=== PATIENT | female | born 1985 | race Two or more races ===

== ENCOUNTER 2019-04-17 17:19 | Emergency (ER) | payer MEDICAID ==
[~2019-04-17] VITALS: Ht 154.9 cm; Wt 65.8 kg
[~2019-04-17 17:19] MED LIST: AMOX-263 PO; CHOL200010 PO; FERR324T11 PO; LEVE500T22 PO; [UNRECOGNIZED DRUG - CODE] IM
[2019-04-17 17:37] VITALS: BP 122/76
== END 2019-04-17 19:01 | disposition home or self-care (01) ==
LOC: ER 17:19
DX: S60.222A Contusion of left hand, initial encounter (principal); Z77.22 Contact with and (suspected) exposure to environmental tobacco smoke (acute) (chronic); Z87.442 Personal history of urinary calculi; Z90.49 Acquired absence of other specified parts of digestive tract; Z79.899 Other long term (current) drug therapy; W20.8XXA Other cause of strike by thrown, projected or falling object, initial encounter; Y93.89 Activity, other specified; Y92.89 Other specified places as the place of occurrence of the external cause; Y99.8 Other external cause status
CPT/HCPCS: 73130

== ENCOUNTER 2020-07-18 21:31 | Emergency (ER) | payer MEDICAID ==
[~2020-07-18] VITALS: Ht 154.9 cm; Wt 62.1 kg
[~2020-07-18 21:31] MED LIST changes: -LEVE500T22 PO; +LEVE500T32 PO
[2020-07-18 22:13] LABS: Urine Bacteria FEW /hpf (None Seen); Urine Blood Negative /uL (Negative); Urine Mucus FEW (None Seen); Urine Specific Gravity 1.012 (1.001-1.035); Urine WBC 1 /hpf (0 - 5)
[2020-07-18 22:20] LABS: Basophils # (auto) 0 10 ^3/uL (0-0.2); Eosinophils # (auto) 0.1 10 ^3/uL (0-0.8); Hemoglobin 8.7 g/dL (12.2-16.2); Lymphocytes # (auto) 2.1 10 ^3/uL (0.4-5.4); Monocytes # (auto) 0.5 10 ^3/uL (0-1.3); White Blood Cell 4.6 10^3/uL (4.4-10.8)
[2020-07-18 22:22] LABS: Basophils % (auto) 0.5 % (0.0-2.0); Eosinophils % (auto) 2.7 % (0.0-7.0); Hematocrit 28.9 % (36.0-46.0); Lymphocytes % (auto) 44.7 % (10.0-50.0); Mean Corpuscular Hemoglobin 19.3 pg (28.0-32.0); Mean Corpuscular Hgb Conc. 30.1 g/dL (32.0-36.0); Monocytes % (auto) 9.9 % (0.0-12.0); Neutrophils % (auto) 42.2 % (37.0-80.0); Nucleated Red Blood Cells % 0.1 %; Platelet Count (auto) 376 10^3/uL (140-450); Red Blood Cells 4.51 10^6/uL (4.0-5.20)
[2020-07-18 22:28] LABS: Red Cell Distribution Width 20.6 % (11.8-14.3)
[2020-07-18 22:39] LABS: Chloride 109 mmol/L (98-107); Potassium 3.8 mmol/L (3.5-5.1); Sodium 137 mmol/L (136-145)
[2020-07-18 22:45] LABS: Alanine Aminotransferase 21 U/L (13-56); Albumin 3.6 g/dL (3.4-5.0); Alkaline Phosphatase 60 U/L (45-117); Aspartate Aminotransferase 16 U/L (15-37); BUN/Creatinine Ratio 20.5; Bilirubin, Total 0.3 mg/dL (0.2-1.0); Blood Urea Nitrogen 15 mg/dL (7-18); Calcium 8.7 mg/dL (8.5-10.1); Carbon Dioxide 22 mmol/L (21-32); GFR African American 117 mL/min; GFR Non-African American 97 mL/min; Glucose 65 mg/dL (74-106); Total Protein 7.7 g/dL (6.4-8.2)
[2020-07-18 22:46] LABS: Anion Gap 6 (5-15)
[2020-07-19] MEDS: SODIUM CHLORIDE 0.9% 1,000 ML IV ONE (03:09)
[2020-07-19 04:12] LABS: Hematocrit 25.7 % (36.0-46.0); Hemoglobin 7.6 g/dL (12.2-16.2)
[2020-07-19 06:41] VITALS: BP 121/52
[2020-07-19 07:00] VITALS: BP 108/43
[2020-07-19] MEDS: ACETAMINOPHEN 325 MG TAB PO ONE (14:15)
[2020-07-19 15:00] LABS: Basophils # (auto) 0 10 ^3/uL (0-0.2); Eosinophils # (auto) 0.1 10 ^3/uL (0-0.8); Lymphocytes # (auto) 1.9 10 ^3/uL (0.4-5.4); White Blood Cell 4.5 10^3/uL (4.4-10.8)
[2020-07-19 15:01] LABS: Basophils % (auto) 0.3 % (0.0-2.0); Eosinophils % (auto) 1.7 % (0.0-7.0); Hematocrit 31.9 % (36.0-46.0); Hemoglobin 9.5 g/dL (12.2-16.2); Lymphocytes % (auto) 41.9 % (10.0-50.0); Mean Corpuscular Hemoglobin 19.8 pg (28.0-32.0); Mean Corpuscular Hgb Conc. 29.8 g/dL (32.0-36.0); Mean Corpuscular Volume 66.4 fL (80.0-100.0); Monocytes # (auto) 0.6 10 ^3/uL (0-1.3); Monocytes % (auto) 12.1 % (0.0-12.0); Platelet Count (auto) 313 10^3/uL (140-450)
[2020-07-19 15:07] LABS: Red Cell Distribution Width 21.9 % (11.8-14.3)
[2020-07-19 17:01] VITALS: BP 104/67
== END 2020-07-19 17:08 | disposition home or self-care (01) ==
LOC: ER 21:33
DX: D64.9 Anemia, unspecified (principal); Z79.899 Other long term (current) drug therapy
CPT/HCPCS: 36415; 36430; 80053; 81001; 81025; 84484; 85014; 85018; 85025; 86850; 86900; 86901; 86920; 96360; 99285; J7030; P9016; 93005

== ENCOUNTER 2020-08-10 21:13 | Emergency (ER) | payer MEDICAID ==
[~2020-08-10] VITALS: Ht 154.9 cm; Wt 59.9 kg
[2020-08-10 21:51] VITALS: BP 124/60
== END 2020-08-11 01:15 | disposition left against medical advice (07) ==
LOC: ER 21:16
DX: R07.9 Chest pain, unspecified (principal); Z53.21 Procedure and treatment not carried out due to patient leaving prior to being seen by health care provider
CPT/HCPCS: 93005

== ENCOUNTER 2021-04-14 18:06 | Emergency (ER) | payer MEDICAID ==
[~2021-04-14] VITALS: Ht 154.9 cm; Wt 61.2 kg
[2021-04-14 22:27] VITALS: BP 98/56
[2021-04-14] MEDS ORDERED: ACETAMINOPHEN/CODEINE#3 (300/30mg) TAB PO ONE (23:00)
[2021-04-14] MEDS ORDERED: ONDANSETRON ODT 4 MG TAB PO ONE (23:00)
== END 2021-04-14 23:31 | disposition home or self-care (01) ==
LOC: ER 18:06
DX: S93.492A Sprain of other ligament of left ankle, initial encounter (principal); Z88.6 Allergy status to analgesic agent; Z88.8 Allergy status to other drugs, medicaments and biological substances; Z79.899 Other long term (current) drug therapy; Z87.442 Personal history of urinary calculi; Z90.49 Acquired absence of other specified parts of digestive tract; Z98.890 Other specified postprocedural states; W18.39XA Other fall on same level, initial encounter; Y93.89 Activity, other specified; Y92.89 Other specified places as the place of occurrence of the external cause; Y99.8 Other external cause status
CPT/HCPCS: 73610; 99283; Q0162

== ENCOUNTER 2021-04-15 11:36 | Inpatient (IN) | payer MEDICAID ==
[~2021-04-15] VITALS: Ht 154.9 cm; Wt 60.2 kg
[2021-04-15 12:43] LABS: Basophils # (auto) 0 10 ^3/uL (0-0.2); Eosinophils # (auto) 0.1 10 ^3/uL (0-0.8); Lymphocytes # (auto) 1.2 10 ^3/uL (0.4-5.4); Lymphocytes % (auto) 14.5 % (10.0-50.0); Neutrophils % (auto) 76.2 % (37.0-80.0)
[2021-04-15 12:45] LABS: Basophils % (auto) 0.5 % (0.0-2.0); Eosinophils % (auto) 1.3 % (0.0-7.0); Hematocrit 25.8 % (36.0-46.0); Hemoglobin 7.5 g/dL (12.2-16.2); Mean Corpuscular Hemoglobin 18.1 pg (28.0-32.0); Mean Corpuscular Hgb Conc. 29.1 g/dL (32.0-36.0); Mean Corpuscular Volume 62.2 fL (80.0-100.0); Monocytes # (auto) 0.6 10 ^3/uL (0-1.3); Monocytes % (auto) 7.5 % (0.0-12.0); Neutrophils # (auto) 6.4 10 ^3/uL (1.6-8.6); Red Blood Cells 4.16 10^6/uL (4.0-5.20); White Blood Cell 8.4 10^3/uL (4.4-10.8)
[2021-04-15 12:53] LABS: BUN/Creatinine Ratio 35.7; Calcium 8.2 mg/dL (8.5-10.1)
[2021-04-15 13:01] LABS: Red Cell Distribution Width 20.3 % (11.8-14.3)
[2021-04-15 15:12] LABS: Urine Bacteria NONE SEEN /hpf (None Seen); Urine Blood Negative /uL (Negative); Urine Mucus FEW (None Seen); Urine Specific Gravity 1.032 (1.001-1.035); Urine WBC <1 /hpf (0 - 5)
[2021-04-15 15:46] LABS: INR 0.92 (0.9-1.15)
[2021-04-15] MEDS ORDERED: ONDANSETRON HCL 4 MG/2 ML VIAL IV ONE (17:45)
[2021-04-15] MEDS ORDERED: NITROGLYCERIN 0.4 MG SL TAB SL PRN (18:30)
[2021-04-15] MEDS ORDERED: CYANOCOBALAMIN 500 MCG TAB PO ONE (18:30)
[2021-04-15] MEDS ORDERED: MORPHINE SULF INJ 2 MG/ML SYRINGE 1ML IV PRN (18:30)
[2021-04-15] MEDS ORDERED: ACETAMINOPHEN 500 MG TAB PO PRN (18:30)
[2021-04-15] MEDS ORDERED: ONDANSETRON HCL 4 MG/2 ML VIAL IV PRN (18:30)
[2021-04-15] MEDS: HYDROcodone-ACET 5/325MG TAB PO PRN (19:22)
[2021-04-15 20:14] VITALS: BP 138/72
[2021-04-15 20:22] VITALS: BP 138/72
[2021-04-15 20:50] VITALS: BP 107/77
[2021-04-15 21:42] LABS: % Iron Saturation 2.6 % (15-50)
[2021-04-15 22:00] VITALS: BP 107/77
[2021-04-16 00:19] VITALS: BP 111/56
[2021-04-16] MEDS: HYDROcodone-ACET 5/325MG TAB PO PRN (01:15)
[2021-04-16 01:19] VITALS: BP 121/76
[2021-04-16 05:00] VITALS: BP 111/66
[2021-04-16 09:00] VITALS: BP 143/68
[2021-04-16] MEDS ORDERED: FOLIC ACID 1 MG TAB PO SCH (10:00)
[2021-04-16 13:00] VITALS: BP 106/47
[2021-04-16 13:27] LABS: Hematocrit 30.7 % (36.0-46.0)
== END 2021-04-16 16:22 | disposition home or self-care (01) | DRG 663 ==
LOC: ER 11:36 → OVERFLOW 18:32 → WEST WING 20:08
PROVIDERS: ADMIT Nurse Practitioner Acute Care; ATTEND Nurse Practitioner Acute Care
PROC: 30233N1 Transfusion of Nonautologous Red Blood Cells into Peripheral Vein, Percutaneous Approach (ICD-10-PCS; principal; 2021-04-15)
DX: D64.9 Anemia, unspecified (principal); E16.2 Hypoglycemia, unspecified; J45.909 Unspecified asthma, uncomplicated; G43.909 Migraine, unspecified, not intractable, without status migrainosus; R53.83 Other fatigue; R55 Syncope and collapse; Z20.822 Contact with and (suspected) exposure to COVID-19; R42 Dizziness and giddiness; Z79.899 Other long term (current) drug therapy; Z82.49 Family history of ischemic heart disease and other diseases of the circulatory system; Z83.3 Family history of diabetes mellitus; Z87.442 Personal history of urinary calculi; Z98.84 Bariatric surgery status; Z90.49 Acquired absence of other specified parts of digestive tract
CPT/HCPCS: 36415; 80048; 81001; 81025; 83540; 83550; 83690; 85014; 85018; 85025; 85045; 85610; 86850; 86900; 86901; 86920; 87426; 93005; 96374; G0378; J2405

== ENCOUNTER 2021-07-23 13:09 | Emergency (ER) | payer MEDICAID ==
[~2021-07-23] VITALS: Ht 154.9 cm; Wt 64.9 kg
[2021-07-23 14:07] LABS: Eosinophils # (auto) 0.1 10 ^3/uL (0-0.8); Hemoglobin 7.9 g/dL (12.2-16.2)
[2021-07-23 14:09] LABS: Basophils # (auto) 0 10 ^3/uL (0-0.2); Basophils % (auto) 0.8 % (0.0-2.0); Eosinophils % (auto) 1.3 % (0.0-7.0); Hematocrit 26.3 % (36.0-46.0); Lymphocytes # (auto) 1.6 10 ^3/uL (0.4-5.4); Lymphocytes % (auto) 27.2 % (10.0-50.0); Mean Corpuscular Hemoglobin 19.2 pg (28.0-32.0); Mean Corpuscular Volume 63.9 fL (80.0-100.0); Monocytes # (auto) 0.4 10 ^3/uL (0-1.3); Monocytes % (auto) 7.6 % (0.0-12.0); Neutrophils # (auto) 3.6 10 ^3/uL (1.6-8.6); Neutrophils % (auto) 63.1 % (37.0-80.0); Nucleated Red Blood Cells % 0.1 %; Red Blood Cells 4.11 10^6/uL (4.0-5.20); White Blood Cell 5.8 10^3/uL (4.4-10.8)
[2021-07-23 14:17] LABS: Red Cell Distribution Width 20.1 % (11.8-14.3)
[2021-07-23 14:25] LABS: Albumin 3.4 g/dL (3.4-5.0); Calcium 8.4 mg/dL (8.5-10.1); Potassium 4.5 mmol/L (3.5-5.1)
[2021-07-23 14:28] LABS: BUN/Creatinine Ratio 31.1
[2021-07-23 14:30] LABS: Bilirubin, Total 0.2 mg/dL (0.2-1.0); Total Protein 7.1 g/dL (6.4-8.2)
[2021-07-23 14:36] LABS: Urine Bacteria NONE SEEN /hpf (None Seen); Urine Blood 2+ /uL (Negative); Urine WBC 1 /hpf (0 - 5)
[2021-07-23 19:00] VITALS: BP 96/55
== END 2021-07-23 19:58 | disposition home or self-care (01) ==
LOC: ER 13:09
DX: R53.1 Weakness (principal); J45.909 Unspecified asthma, uncomplicated; Z86.2 Personal history of diseases of the blood and blood-forming organs and certain disorders involving the immune mechanism; Z90.49 Acquired absence of other specified parts of digestive tract; Z88.8 Allergy status to other drugs, medicaments and biological substances
CPT/HCPCS: 36415; 80053; 81001; 85025; 86850; 86900; 86901; 86920

== ENCOUNTER 2021-11-02 11:59 | Emergency (ER) | payer MEDICAID ==
[~2021-11-02] VITALS: Ht 154.9 cm; Wt 62.6 kg
[2021-11-02 12:00] VITALS: BP 120/56
== END 2021-11-02 13:00 | disposition home or self-care (01) ==
LOC: ER 11:59
DX: S60.221A Contusion of right hand, initial encounter (principal); F12.10 Cannabis abuse, uncomplicated; J45.909 Unspecified asthma, uncomplicated; I10 Essential (primary) hypertension; Z90.49 Acquired absence of other specified parts of digestive tract; Z87.442 Personal history of urinary calculi; Z88.8 Allergy status to other drugs, medicaments and biological substances; W22.8XXA Striking against or struck by other objects, initial encounter; Y93.89 Activity, other specified; Y92.89 Other specified places as the place of occurrence of the external cause; Y99.8 Other external cause status
CPT/HCPCS: 73130

== ENCOUNTER 2022-01-23 12:47 | Emergency (ER) | payer MEDICAID ==
[~2022-01-23] VITALS: Ht 154.9 cm; Wt 62.6 kg
[2022-01-23 13:56] LABS: Basophils # (auto) 0 10 ^3/uL (0-0.2); Eosinophils # (auto) 0.1 10 ^3/uL (0-0.8); Lymphocytes # (auto) 1.8 10 ^3/uL (0.4-5.4); Monocytes # (auto) 0.4 10 ^3/uL (0-1.3); Nucleated Red Blood Cells % 0.1 %; White Blood Cell 5.2 10^3/uL (4.4-10.8)
[2022-01-23 13:58] LABS: Basophils % (auto) 0.7 % (0.0-2.0); Eosinophils % (auto) 1.2 % (0.0-7.0); Hematocrit 24.9 % (36.0-46.0); Hemoglobin 7.3 g/dL (12.2-16.2); Lymphocytes % (auto) 35.2 % (10.0-50.0); Mean Corpuscular Hemoglobin 17.1 pg (28.0-32.0); Mean Corpuscular Hgb Conc. 29.3 g/dL (32.0-36.0); Mean Corpuscular Volume 58.6 fL (80.0-100.0); Monocytes % (auto) 8.4 % (0.0-12.0); Neutrophils # (auto) 2.9 10 ^3/uL (1.6-8.6); Neutrophils % (auto) 54.5 % (37.0-80.0); Red Blood Cells 4.25 10^6/uL (4.0-5.20)
[2022-01-23 14:19] LABS: Albumin 3.5 g/dL (3.4-5.0); Calcium 8.9 mg/dL (8.5-10.1); Potassium 3.8 mmol/L (3.5-5.1)
[2022-01-23 14:20] LABS: Red Cell Distribution Width 21.1 % (11.8-14.3)
[2022-01-23 14:22] LABS: BUN/Creatinine Ratio 24.6; Bilirubin, Total 0.4 mg/dL (0.2-1.0); Total Protein 7.4 g/dL (6.4-8.2)
[2022-01-23 14:42] LABS: Urine WBC None Seen /hpf (0 - 5)
[2022-01-23 14:55] LABS: Urine Bacteria NONE SEEN /hpf (None Seen); Urine Blood Negative /uL (Negative); Urine Specific Gravity 1.005 (1.001-1.035)
[2022-01-23 16:00] VITALS: BP 139/75
== END 2022-01-23 16:10 | disposition home or self-care (01) ==
LOC: ER 12:47
DX: D64.9 Anemia, unspecified (principal); R55 Syncope and collapse; I10 Essential (primary) hypertension; J45.909 Unspecified asthma, uncomplicated; Z90.49 Acquired absence of other specified parts of digestive tract; Z88.8 Allergy status to other drugs, medicaments and biological substances
CPT/HCPCS: 36415; 70450; 80053; 81001; 85025; 93005

== ENCOUNTER 2022-02-05 09:30 | Inpatient (IN) | payer MEDICAID ==
[~2022-02-05] VITALS: Ht 152.4 cm; Wt 60.6 kg
[2022-02-05] MEDS ORDERED: ONDANSETRON ODT 4 MG TAB PO ONE ×2 (10:41→10:45)
[2022-02-05] MEDS ORDERED: SODIUM CHLORIDE 0.9% 1,000 ML IV ONE ×3 (11:00→11:45)
[2022-02-05] MEDS ORDERED: MORPHINE SULFATE 4 MG/ML SYR/VIAL IV ONE (11:45)
[2022-02-05] MEDS ORDERED: ONDANSETRON HCL 4 MG/2 ML VIAL IV ONE (11:45)
[2022-02-05 12:00] LABS: Hematocrit 25.9 % (36.0-46.0); Hemoglobin 7.4 g/dL (12.2-16.2); Mean Corpuscular Hemoglobin 16.9 pg (28.0-32.0); Mean Corpuscular Hgb Conc. 28.4 g/dL (32.0-36.0); Mean Corpuscular Volume 59.3 fL (80.0-100.0); Red Blood Cells 4.36 10^6/uL (4.0-5.20); White Blood Cell 6.5 10^3/uL (4.4-10.8)
[2022-02-05 12:01] LABS: Basophils % (manual) 0 (0.0-2.0); Blast Cells 0; Metamyelocytes % 0; Myelocytes % 0; Promyelocytes % 0; Reactive Lymphocytes 0; Red Cell Distribution Width 20.4 % (11.8-14.3)
[2022-02-05 12:16] LABS: Albumin 3.4 g/dL (3.4-5.0); Calcium 8.2 mg/dL (8.5-10.1); Potassium 4.2 mmol/L (3.5-5.1)
[2022-02-05 12:20] LABS: BUN/Creatinine Ratio 28.8; Bilirubin, Total 0.4 mg/dL (0.2-1.0); Total Protein 7.6 g/dL (6.4-8.2)
[2022-02-05 12:24] LABS: Band Neutrophils % (manual) 3; Eosinophils % (manual) 3 (0-7); Lymphocytes % (manual) 23 (10.0-50.0); Monocytes % (manual) 5 (0-12)
[2022-02-05 13:49] LABS: Urine Bacteria NONE SEEN /hpf (None Seen); Urine Blood Negative /uL (Negative); Urine Specific Gravity 1.012 (1.001-1.035); Urine WBC <1 /hpf (0 - 5)
[2022-02-05] MEDS ORDERED: cefTRIAXone 1GM/50ML D5W 50 ML IV ONE (16:30)
[2022-02-05] MEDS ORDERED: metroNIDAZOLE 500MG/100ML 100 ML IV ONE (16:30)
[2022-02-05] MEDS ORDERED: PANTOPRAZOLE 40 MG/10 ML VIAL INJ IV ONE (18:30)
[2022-02-05] MEDS: ONDANSETRON HCL 4 MG/2 ML VIAL IV PRN (20:16)
[2022-02-05] MEDS: SODIUM CHLORIDE 0.9% 1,000 ML IV SCH (20:16)
[2022-02-05] MEDS: MORPHINE SULFATE INJ 2 MG/ml SYRG IV PRN (20:17)
[2022-02-06] VITALS (11 sets, daily range): BP systolic 91–120; BP diastolic 41–62
[2022-02-06] MEDS ORDERED: ALBUMIN 5% 250 ML IV ONE (06:00)
[2022-02-06 06:37] LABS: Eosinophils # (auto) 0.2 10 ^3/uL (0-0.8); Eosinophils % (auto) 3.5 % (0.0-7.0); Mean Corpuscular Volume 59.9 fL (80.0-100.0); Monocytes # (auto) 0.4 10 ^3/uL (0-1.3); Monocytes % (auto) 6.9 % (0.0-12.0); Nucleated Red Blood Cells % 0.1 %; White Blood Cell 5.5 10^3/uL (4.4-10.8)
[2022-02-06 06:40] LABS: Basophils # (auto) 0 10 ^3/uL (0-0.2); Basophils % (auto) 0.5 % (0.0-2.0); Hematocrit 22.6 % (36.0-46.0); Lymphocytes # (auto) 1.4 10 ^3/uL (0.4-5.4); Lymphocytes % (auto) 25.8 % (10.0-50.0); Mean Corpuscular Hemoglobin 17.6 pg (28.0-32.0); Mean Corpuscular Hgb Conc. 29.4 g/dL (32.0-36.0); Neutrophils # (auto) 3.5 10 ^3/uL (1.6-8.6); Neutrophils % (auto) 63.3 % (37.0-80.0); Red Blood Cells 3.77 10^6/uL (4.0-5.20)
[2022-02-06 06:51] LABS: Albumin 2.6 g/dL (3.4-5.0); Calcium 7.8 mg/dL (8.5-10.1); Potassium 3.9 mmol/L (3.5-5.1)
[2022-02-06 06:58] LABS: Red Cell Distribution Width 20.7 % (11.8-14.3)
[2022-02-06 06:59] LABS: Hemoglobin 6.7 g/dL (12.2-16.2)
[2022-02-06 07:04] LABS: Bilirubin, Total 0.4 mg/dL (0.2-1.0); Total Protein 5.9 g/dL (6.4-8.2)
[2022-02-06] MEDS: MORPHINE SULFATE INJ 2 MG/ml SYRG IV PRN (08:29)
[2022-02-06] MEDS: SODIUM CHLORIDE 0.9% 1,000 ML IV SCH ×2 (08:30→14:15)
[2022-02-06] MEDS: ONDANSETRON HCL 4 MG/2 ML VIAL IV PRN ×2 (08:30→19:29)
[2022-02-06] MEDS ORDERED: PANTOPRAZOLE 40 MG/10 ML VIAL INJ IV SCH ×2 (10:00→22:00)
[2022-02-06] MEDS ORDERED: HYDROcodone-ACET 5/325MG TAB PO PRN (11:45)
[2022-02-06 13:00] LABS: INR 0.99 (0.9-1.15); Partial Thromboplastin Time 25.4 sec (23.6-33.0)
[2022-02-06 13:18] LABS: % Iron Saturation 2.2 % (15-50)
[2022-02-06] MEDS: SUCRALFATE 1 GM/10 ML ORAL SUSP PO SCH ×2 (17:00→20:24)
[2022-02-07 01:07] VITALS: BP 94/57
[2022-02-07 02:28] VITALS: BP 105/60
[2022-02-07 05:00] VITALS: BP 110/73
[2022-02-07] MEDS: SUCRALFATE 1 GM/10 ML ORAL SUSP PO SCH ×2 (07:00→11:30)
[2022-02-07 07:04] LABS: Basophils # (auto) 0.1 10 ^3/uL (0-0.2); Eosinophils # (auto) 0.2 10 ^3/uL (0-0.8); Hemoglobin 9.2 g/dL (12.2-16.2); Lymphocytes % (auto) 29.3 % (10.0-50.0); Monocytes # (auto) 0.5 10 ^3/uL (0-1.3); Neutrophils # (auto) 3.3 10 ^3/uL (1.6-8.6); Red Cell Distribution Width 25.9 % (11.8-14.3)
[2022-02-07 07:05] LABS: Hematocrit 29.5 % (36.0-46.0); Lymphocytes # (auto) 1.7 10 ^3/uL (0.4-5.4); Mean Corpuscular Hemoglobin 20.3 pg (28.0-32.0); Mean Corpuscular Hgb Conc. 31.3 g/dL (32.0-36.0); Monocytes % (auto) 8.2 % (0.0-12.0); Neutrophils % (auto) 58.5 % (37.0-80.0); Nucleated Red Blood Cells % 0.2 %; Red Blood Cells 4.55 10^6/uL (4.0-5.20); White Blood Cell 5.7 10^3/uL (4.4-10.8)
[2022-02-07] MEDS ORDERED: MIDAZOLAM HCL 5 MG/ML-1ML VIAL ONE (08:36)
[2022-02-07] MEDS ORDERED: SODIUM CHLORIDE LOCK 10 ML ONE (08:36)
[2022-02-07] MEDS ORDERED: LIDOCAINE VISCOUS 2% 15ML UD ONE (08:36)
[2022-02-07] MEDS ORDERED: fentaNYL CITRATE 100 MCG/2 ML VL ONE (08:37)
[2022-02-07] MEDS ORDERED: diphenhdrAMINE HCL 50 MG/1 ML VL ONE (08:37)
[2022-02-07 09:00] VITALS: BP 110/58
[2022-02-07] MEDS ORDERED: PANTOPRAZOLE 40 MG TAB PO SCH (10:00)
[2022-02-07] MEDS ORDERED: SUCR1SUS5 PO (11:15)
[2022-02-07] MEDS ORDERED: PANT40T PO (11:15)
[2022-02-07] MEDS ORDERED: FERR-7 PO (11:22)
[2022-02-07 13:00] VITALS: BP 107/53
== END 2022-02-07 16:00 | disposition home or self-care (01) | DRG 241 ==
LOC: ER 09:30 → OVERFLOW 18:39 → EAST 22:20
PROVIDERS: ADMIT Registered Nurse; ATTEND Internal Medicine
PROC: 30233N1 Transfusion of Nonautologous Red Blood Cells into Peripheral Vein, Percutaneous Approach (ICD-10-PCS; principal; 2022-02-06)
PROC: 0DJ08ZZ Inspection of Upper Intestinal Tract, Via Natural or Artificial Opening Endoscopic (ICD-10-PCS; 2022-02-07)
DX: K29.70 Gastritis, unspecified, without bleeding (principal); E61.1 Iron deficiency; G40.909 Epilepsy, unspecified, not intractable, without status epilepticus; K52.9 Noninfective gastroenteritis and colitis, unspecified; I10 Essential (primary) hypertension; J45.909 Unspecified asthma, uncomplicated; N85.2 Hypertrophy of uterus; Z20.822 Contact with and (suspected) exposure to COVID-19; Z82.49 Family history of ischemic heart disease and other diseases of the circulatory system; Z83.3 Family history of diabetes mellitus; Z87.11 Personal history of peptic ulcer disease; Z98.84 Bariatric surgery status; Z88.8 Allergy status to other drugs, medicaments and biological substances; Z90.49 Acquired absence of other specified parts of digestive tract
CPT/HCPCS: 36415; 43235; 74176; 76830; 76856; 80053; 81001; 82728; 83540; 83550; 84702; 85007; 85025; 85027; 85610; 85730; 86850; 86900; 86901; 86920; 96361; 96365; 96367; 96375; 96376; C9113; G0378; J0696; J2250; J2405; J3490; Q0162

== ENCOUNTER 2022-02-25 12:34 | Emergency (ER) | payer MEDICAID ==
[~2022-02-25] VITALS: Ht 154.9 cm; Wt 62.6 kg
[~2022-02-25 12:34] MED LIST changes: -AMOX-263 PO; -CHOL200010 PO; +FERR-7 PO; -FERR324T11 PO; -LEVE500T32 PO; +PANT40T PO; +SUCR1SUS5 PO; -[UNRECOGNIZED DRUG - CODE] IM
[2022-02-25 12:35] VITALS: BP 146/80
[2022-02-25 13:18] LABS: Urine WBC None Seen /hpf (0 - 5)
[2022-02-25 13:23] LABS: Basophils # (auto) 0 10 ^3/uL (0-0.2); Eosinophils # (auto) 0.1 10 ^3/uL (0-0.8); Hemoglobin 10.8 g/dL (12.2-16.2); Lymphocytes # (auto) 2.1 10 ^3/uL (0.4-5.4); Mean Corpuscular Hgb Conc. 31.2 g/dL (32.0-36.0); Monocytes # (auto) 0.3 10 ^3/uL (0-1.3)
[2022-02-25 13:25] LABS: Eosinophils % (auto) 3.1 % (0.0-7.0); Hematocrit 34.5 % (36.0-46.0); Lymphocytes % (auto) 48.5 % (10.0-50.0); Mean Corpuscular Hemoglobin 20.8 pg (28.0-32.0); Mean Corpuscular Volume 66.8 fL (80.0-100.0); Monocytes % (auto) 6.4 % (0.0-12.0); Neutrophils # (auto) 1.8 10 ^3/uL (1.6-8.6); Red Blood Cells 5.16 10^6/uL (4.0-5.20); White Blood Cell 4.3 10^3/uL (4.4-10.8)
[2022-02-25 13:29] LABS: Urine Bacteria NONE SEEN /hpf (None Seen); Urine Blood Negative /uL (Negative); Urine Specific Gravity 1.007 (1.001-1.035)
[2022-02-25 13:30] LABS: Red Cell Distribution Width 30.5 % (11.8-14.3)
[2022-02-25 13:52] LABS: Albumin 3.6 g/dL (3.4-5.0); Calcium 8.8 mg/dL (8.5-10.1); Potassium 3.8 mmol/L (3.5-5.1)
[2022-02-25 13:56] LABS: BUN/Creatinine Ratio 19.7; Bilirubin, Total 0.5 mg/dL (0.2-1.0); Total Protein 7.7 g/dL (6.4-8.2)
[2022-02-25] MEDS ORDERED: SODIUM CHLORIDE 0.9% 1,000 ML IV ONE (14:45)
== END 2022-02-25 17:34 | disposition home or self-care (01) ==
LOC: ER 12:34
DX: R07.89 Other chest pain (principal); D64.9 Anemia, unspecified; I10 Essential (primary) hypertension; K21.9 Gastro-esophageal reflux disease without esophagitis; J45.909 Unspecified asthma, uncomplicated; Z86.69 Personal history of other diseases of the nervous system and sense organs; Z98.84 Bariatric surgery status; Z90.49 Acquired absence of other specified parts of digestive tract; Z79.899 Other long term (current) drug therapy; Z88.8 Allergy status to other drugs, medicaments and biological substances
CPT/HCPCS: 36415; 71046; 80053; 81001; 81025; 83735; 84443; 84484; 85025; 93005; 96360; 99285; J7030

== ENCOUNTER 2022-09-10 15:34 | Emergency (ER) | payer MEDICAID ==
[~2022-09-10] VITALS: Ht 154.9 cm; Wt 72.0 kg
[2022-09-10] MEDS ORDERED: ASPirin 81 mg TAB PO ONE (16:00)
[2022-09-10 16:37] LABS: Hemoglobin 10.3 g/dL (12.2-16.2)
[2022-09-10 16:40] LABS: Basophils # (auto) 0.1 10 ^3/uL (0-0.2); Eosinophils # (auto) 0.2 10 ^3/uL (0-0.8); Eosinophils % (auto) 3.5 % (0.0-7.0); Hematocrit 34.9 % (36.0-46.0); Lymphocytes # (auto) 2.1 10 ^3/uL (0.4-5.4); Lymphocytes % (auto) 40.5 % (10.0-50.0); Mean Corpuscular Hemoglobin 20.1 pg (28.0-32.0); Mean Corpuscular Hgb Conc. 29.5 g/dL (32.0-36.0); Mean Corpuscular Volume 68.3 fL (80.0-100.0); Monocytes # (auto) 0.3 10 ^3/uL (0-1.3); Neutrophils # (auto) 2.5 10 ^3/uL (1.6-8.6); Nucleated Red Blood Cells % 0.1 %; Red Blood Cells 5.11 10^6/uL (4.0-5.20); Red Cell Distribution Width 19.5 % (11.8-14.3); White Blood Cell 5.2 10^3/uL (4.4-10.8)
[2022-09-10 16:58] LABS: Calcium 8.8 mg/dL (8.5-10.1); Magnesium 2.5 mg/dL (1.6-2.6); Potassium 4.2 mmol/L (3.5-5.1)
[2022-09-10 17:02] LABS: Bilirubin, Total 0.4 mg/dL (0.2-1.0); Total Protein 7.6 g/dL (6.4-8.2)
[2022-09-10 17:05] LABS: BUN/Creatinine Ratio 26.1
[2022-09-10 19:32] LABS: Urine Bacteria NONE SEEN /hpf (None Seen); Urine Blood Negative /uL (Negative); Urine WBC <1 /hpf (0 - 5)
[2022-09-10 20:04] VITALS: BP 135/70
== END 2022-09-10 20:08 | disposition home or self-care (01) ==
LOC: ER 15:34
DX: R07.89 Other chest pain (principal); J45.909 Unspecified asthma, uncomplicated; K21.9 Gastro-esophageal reflux disease without esophagitis; E78.5 Hyperlipidemia, unspecified; I10 Essential (primary) hypertension; Z98.51 Tubal ligation status; Z90.49 Acquired absence of other specified parts of digestive tract; Z87.442 Personal history of urinary calculi; Z88.6 Allergy status to analgesic agent
CPT/HCPCS: 36415; 71046; 80053; 81001; 83735; 84484; 85025; 85379; 93005

== ENCOUNTER 2022-10-25 05:28 | Emergency (ER) | payer MEDICAID ==
[~2022-10-25] VITALS: Ht 154.9 cm; Wt 70.9 kg
[2022-10-25 05:30] VITALS: BP 127/91
[2022-10-25] MEDS ORDERED: ONDANSETRON ODT 4 MG TAB PO ONE (05:45)
[2022-10-25 06:26] LABS: Basophils # (auto) 0 10 ^3/uL (0-0.2); Basophils % (auto) 0.6 % (0.0-2.0); Eosinophils # (auto) 0.1 10 ^3/uL (0-0.8); Lymphocytes # (auto) 1.7 10 ^3/uL (0.4-5.4); Monocytes # (auto) 0.3 10 ^3/uL (0-1.3); Nucleated Red Blood Cells % 0.1 %; White Blood Cell 6.7 10^3/uL (4.4-10.8)
[2022-10-25 06:31] LABS: Eosinophils % (auto) 0.8 % (0.0-7.0); Hematocrit 32.6 % (36.0-46.0); Hemoglobin 9.5 g/dL (12.2-16.2); Lymphocytes % (auto) 25.6 % (10.0-50.0); Mean Corpuscular Hemoglobin 19.5 pg (28.0-32.0); Mean Corpuscular Hgb Conc. 29.2 g/dL (32.0-36.0); Mean Corpuscular Volume 66.6 fL (80.0-100.0); Monocytes % (auto) 4.9 % (0.0-12.0); Neutrophils # (auto) 4.5 10 ^3/uL (1.6-8.6); Neutrophils % (auto) 68.1 % (37.0-80.0); Red Blood Cells 4.89 10^6/uL (4.0-5.20); Red Cell Distribution Width 18.9 % (11.8-14.3)
[2022-10-25 06:36] LABS: Albumin 3.8 g/dL (3.4-5.0); Calcium 8.9 mg/dL (8.5-10.1); Potassium 3.9 mmol/L (3.5-5.1)
[2022-10-25 06:40] LABS: Bilirubin, Total 0.6 mg/dL (0.2-1.0); Total Protein 8.2 g/dL (6.4-8.2)
[2022-10-25] MEDS ORDERED: SODIUM CHLORIDE 0.9% 1,000 ML IVB ONE (06:45)
[2022-10-25] MEDS ORDERED: PROCHLORPERAZINE EDISYLATE 5 MG/ML 2ML VIAL IV ONE (06:45)
[2022-10-25] MEDS ORDERED: PANTOPRAZOLE 40 MG/10 ML VIAL INJ IV ONE (06:45)
[2022-10-25 10:30] LABS: Urine Bacteria NONE SEEN /hpf (None Seen); Urine Blood 2+ /uL (Negative); Urine Mucus FEW (None Seen); Urine Specific Gravity 1.028 (1.001-1.035); Urine WBC 3 /hpf (0 - 5)
[2022-10-25] MEDS ORDERED: ONDA-144 PO (11:18)
== END 2022-10-25 11:53 | disposition home or self-care (01) ==
LOC: ER 05:28
DX: R10.9 Unspecified abdominal pain (principal); R11.2 Nausea with vomiting, unspecified; F12.10 Cannabis abuse, uncomplicated; R10.2 Pelvic and perineal pain; J45.909 Unspecified asthma, uncomplicated; K21.9 Gastro-esophageal reflux disease without esophagitis; E78.5 Hyperlipidemia, unspecified; I10 Essential (primary) hypertension; Z90.49 Acquired absence of other specified parts of digestive tract; Z98.51 Tubal ligation status; Z87.442 Personal history of urinary calculi; Z88.6 Allergy status to analgesic agent
CPT/HCPCS: 36415; 74176; 80053; 81001; 83690; 84702; 85025; 96361; 96374; 96375; 99285; C9113; J0780; J7030; Q0162

== ENCOUNTER 2022-11-28 10:31 | Emergency (ER) | payer MEDICAID ==
[~2022-11-28] VITALS: Ht 154.9 cm; Wt 71.0 kg
[~2022-11-28 10:31] MED LIST changes: +ONDA-144 PO
[2022-11-28] MEDS ORDERED: SODIUM CHLORIDE 0.9% 1,000 ML IV ONE ×2 (11:00)
[2022-11-28 11:12] LABS: Basophils # (auto) 0 10 ^3/uL (0-0.2); Hemoglobin 9.8 g/dL (12.2-16.2); Monocytes # (auto) 0.4 10 ^3/uL (0-1.3)
[2022-11-28 11:14] LABS: Basophils % (auto) 0.8 % (0.0-2.0); Eosinophils # (auto) 0.2 10 ^3/uL (0-0.8); Eosinophils % (auto) 3.6 % (0.0-7.0); Hematocrit 33.2 % (36.0-46.0); Lymphocytes % (auto) 40.4 % (10.0-50.0); Mean Corpuscular Hemoglobin 19.4 pg (28.0-32.0); Mean Corpuscular Hgb Conc. 29.7 g/dL (32.0-36.0); Mean Corpuscular Volume 65.4 fL (80.0-100.0); Neutrophils # (auto) 2.4 10 ^3/uL (1.6-8.6); Neutrophils % (auto) 47.2 % (37.0-80.0); Nucleated Red Blood Cells % 0.2 %; Red Blood Cells 5.08 10^6/uL (4.0-5.20); Red Cell Distribution Width 19.9 % (11.8-14.3)
[2022-11-28 11:38] LABS: Albumin 3.6 g/dL (3.4-5.0); BUN/Creatinine Ratio 17.2 (10.0-20.0); Bilirubin, Total 0.5 mg/dL (0.2-1.0); Calcium 8.7 mg/dL (8.5-10.1); Potassium 3.9 mmol/L (3.5-5.1); Total Protein 7.5 g/dL (6.4-8.2)
[2022-11-28 13:56] VITALS: BP 122/80
== END 2022-11-28 14:11 | disposition home or self-care (01) ==
LOC: ER 10:31
DX: R55 Syncope and collapse (principal); J45.909 Unspecified asthma, uncomplicated; K21.9 Gastro-esophageal reflux disease without esophagitis; E78.5 Hyperlipidemia, unspecified; I10 Essential (primary) hypertension; F12.10 Cannabis abuse, uncomplicated; R10.2 Pelvic and perineal pain; Z87.442 Personal history of urinary calculi; Z90.49 Acquired absence of other specified parts of digestive tract; Z98.51 Tubal ligation status; Z88.6 Allergy status to analgesic agent
CPT/HCPCS: 36415; 70450; 71045; 80053; 82962; 84484; 84702; 85025; 96360; 96361; 99285; J7030

== ENCOUNTER 2023-02-07 21:26 | Emergency (ER) | payer MEDICAID ==
[~2023-02-07] VITALS: Ht 154.9 cm; Wt 74.2 kg
[2023-02-07 21:51] VITALS: BP 144/77
[2023-02-07 22:26] LABS: Basophils # (auto) 0 10 ^3/uL (0-0.2); Eosinophils # (auto) 0.1 10 ^3/uL (0-0.8); Monocytes # (auto) 0.4 10 ^3/uL (0-1.3); Neutrophils # (auto) 3.1 10 ^3/uL (1.6-8.6)
[2023-02-07 22:29] LABS: Basophils % (auto) 0.4 % (0.0-2.0); Eosinophils % (auto) 2.3 % (0.0-7.0); Hematocrit 30.2 % (36.0-46.0); Hemoglobin 8.7 g/dL (12.2-16.2); Lymphocytes # (auto) 2.2 10 ^3/uL (0.4-5.4); Lymphocytes % (auto) 37.3 % (10.0-50.0); Mean Corpuscular Hemoglobin 18.3 pg (28.0-32.0); Mean Corpuscular Hgb Conc. 28.7 g/dL (32.0-36.0); Monocytes % (auto) 7.5 % (0.0-12.0); Neutrophils % (auto) 52.5 % (37.0-80.0); Red Blood Cells 4.72 10^6/uL (4.0-5.20); Red Cell Distribution Width 19.7 % (11.8-14.3)
[2023-02-07 22:39] LABS: Albumin 3.4 g/dL (3.4-5.0); Calcium 8.3 mg/dL (8.5-10.1); Potassium 3.9 mmol/L (3.5-5.1)
[2023-02-07 22:43] LABS: BUN/Creatinine Ratio 16.9 (10.0-20.0); Bilirubin, Total 0.3 mg/dL (0.2-1.0); Total Protein 7.3 g/dL (6.4-8.2)
[2023-02-07 22:51] LABS: Urine Bacteria FEW /hpf (None Seen); Urine Blood 2+ /uL (Negative); Urine Specific Gravity 1.004 (1.001-1.035); Urine WBC <1 /hpf (0 - 5)
[2023-02-08] MEDS ORDERED: ZOFR4T PO (00:38)
[2023-02-08] MEDS ORDERED: FER325T PO (00:38)
[2023-02-08] MEDS ORDERED: IBU600T PO (00:38)
== END 2023-02-08 04:45 | disposition home or self-care (01) ==
LOC: ER 21:28
DX: G43.909 Migraine, unspecified, not intractable, without status migrainosus (principal); D64.9 Anemia, unspecified; I10 Essential (primary) hypertension; J45.909 Unspecified asthma, uncomplicated; K21.9 Gastro-esophageal reflux disease without esophagitis; E78.5 Hyperlipidemia, unspecified; F12.10 Cannabis abuse, uncomplicated; Z90.49 Acquired absence of other specified parts of digestive tract; Z98.51 Tubal ligation status; Z87.442 Personal history of urinary calculi
CPT/HCPCS: 36415; 70450; 71045; 80053; 81001; 82962; 84484; 85025; 93005

== ENCOUNTER 2023-03-24 18:10 | Emergency (ER) | payer MEDICAID ==
[~2023-03-24] VITALS: Ht 157.5 cm; Wt 71.6 kg
[~2023-03-24 18:10] MED LIST changes: +FER325T PO; +IBU600T PO; +ZOFR4T PO
[2023-03-24 20:29] VITALS: TEMP 98.7; O2SAT 96
[2023-03-24] MEDS ORDERED: ONDANSETRON ODT 4 MG TAB PO ONE (20:30)
[2023-03-24] MEDS ORDERED: MORPHINE SULFATE INJ 2 MG/ml SYRG IV ONE (20:30)
[2023-03-24 21:05] VITALS: BP 118/50; RESP 20
[2023-03-24 21:06] VITALS: PULSE 62
[2023-03-24] MEDS ORDERED: TRAM50TA2 PO (21:22)
[2023-03-24] MEDS ORDERED: CYCL-837 PO (21:22)
[2023-03-24] MEDS ORDERED: TAMS-35 PO (21:24)
[2023-03-24] MEDS ORDERED: KETOROLAC TROMETH 30 MG/ML 1ML VIAL IV ONE (21:30)
== END 2023-03-24 21:53 | disposition home or self-care (01) ==
LOC: ER 18:10 → EDBD 18:10 → ER 21:51
DX: S39.012A Strain of muscle, fascia and tendon of lower back, initial encounter (principal); N20.0 Calculus of kidney; J45.909 Unspecified asthma, uncomplicated; K21.9 Gastro-esophageal reflux disease without esophagitis; E78.5 Hyperlipidemia, unspecified; I10 Essential (primary) hypertension; F17.290 Nicotine dependence, other tobacco product, uncomplicated; F15.90 Other stimulant use, unspecified, uncomplicated; Z90.49 Acquired absence of other specified parts of digestive tract; Z98.890 Other specified postprocedural states; Z86.2 Personal history of diseases of the blood and blood-forming organs and certain disorders involving the immune mechanism; Z88.6 Allergy status to analgesic agent; Z88.8 Allergy status to other drugs, medicaments and biological substances; Z79.1 Long term (current) use of non-steroidal anti-inflammatories (NSAID); Z79.899 Other long term (current) drug therapy; X50.0XXA Overexertion from strenuous movement or load, initial encounter; Y93.89 Activity, other specified; Y92.89 Other specified places as the place of occurrence of the external cause; Y99.8 Other external cause status
CPT/HCPCS: 72131; 96374; 96375; 99285; J1885; J2270; Q0162

== ENCOUNTER 2023-06-27 08:39 | Emergency (ER) | payer MEDICAID ==
[~2023-06-27] VITALS: Ht 154.9 cm; Wt 73.7 kg
[~2023-06-27 08:39] MED LIST changes: +CYCL-837 PO; +TAMS-35 PO; +TRAM50TA2 PO
[2023-06-27] MEDS ORDERED: ASPirin 81 mg TAB PO ONE (08:45)
[2023-06-27 08:59] LABS: Basophils # (auto) 0 10 ^3/uL (0-0.2); Basophils % (auto) 0.4 % (0.0-2.0); Eosinophils # (auto) 0.1 10 ^3/uL (0-0.8); Lymphocytes # (auto) 1.4 10 ^3/uL (0.4-5.4); Mean Corpuscular Hemoglobin 18.5 pg (28.0-32.0); Mean Corpuscular Hgb Conc. 28.9 g/dL (32.0-36.0); White Blood Cell 11.1 10^3/uL (4.4-10.8)
[2023-06-27 09:01] LABS: Eosinophils % (auto) 1.1 % (0.0-7.0); Lymphocytes % (auto) 12.7 % (10.0-50.0); Mean Corpuscular Volume 64.1 fL (80.0-100.0); Monocytes # (auto) 0.7 10 ^3/uL (0-1.3); Monocytes % (auto) 6.2 % (0.0-12.0); Neutrophils # (auto) 8.8 10 ^3/uL (1.6-8.6); Neutrophils % (auto) 79.6 % (37.0-80.0); Red Blood Cells 4.83 10^6/uL (4.0-5.20)
[2023-06-27 09:12] LABS: Red Cell Distribution Width 20.2 % (11.8-14.3)
[2023-06-27 09:39] LABS: Alanine Aminotransferase 15 U/L (7-40); Albumin 4.4 g/dL (3.2-4.8); Alkaline Phosphatase 75 U/L (46-116); Anion Gap 8 (5-15); Aspartate Aminotransferase 12 U/L (13-40); BUN/Creatinine Ratio 20.6 (10.0-20.0); Blood Urea Nitrogen 14 mg/dL (9-23); Calcium 9.4 mg/dL (8.5-10.1); Carbon Dioxide 25 mmol/L (20-30); Chloride 105 mmol/L (98-107); Glucose 92 mg/dL (74-106); Potassium 4.6 mmol/L (3.5-5.1); Sodium 138 mmol/L (136-145)
[2023-06-27 09:40] LABS: Bilirubin, Total 0.4 mg/dL (0.2-1.0); Total Protein 7.4 g/dL (5.7-8.2)
[2023-06-27] MEDS ORDERED: IOHEXOL 350 MG/ML 100ML IJ ONE (10:00)
[2023-06-27 11:25] LABS: Magnesium 1.9 mg/dL (1.6-2.6)
[2023-06-27 11:59] LABS: Platelet Estimate Adequate
[2023-06-27 12:00] LABS: Anisocytosis Slight; Hypochromia Marked
[2023-06-27 12:34] VITALS: BP 119/68; PULSE 66; RESP 18; TEMP 98.2; O2SAT 96
[2023-06-27] MEDS ORDERED: AZIT1POW PO (12:59)
[2023-06-27 13:02] LABS: Urine Bacteria NONE SEEN /hpf (None Seen); Urine Blood Negative /uL (Negative); Urine Clarity Clear (Clear); Urine Color Colorless (Yellow); Urine Protein, UAD TRACE (Negative); Urine Urobilinogen Normal (Negative); Urine WBC 1 /hpf (0 - 5)
[2023-06-27 13:08] LABS: Urine Specific Gravity > 1.050 (1.001-1.035)
== END 2023-06-27 13:14 | disposition home or self-care (01) ==
LOC: ER 08:39
DX: R07.89 Other chest pain (principal); J18.9 Pneumonia, unspecified organism; I10 Essential (primary) hypertension; K21.9 Gastro-esophageal reflux disease without esophagitis; E78.5 Hyperlipidemia, unspecified; J45.909 Unspecified asthma, uncomplicated; Z86.2 Personal history of diseases of the blood and blood-forming organs and certain disorders involving the immune mechanism; Z90.49 Acquired absence of other specified parts of digestive tract; Z79.1 Long term (current) use of non-steroidal anti-inflammatories (NSAID); Z79.899 Other long term (current) drug therapy; Z88.8 Allergy status to other drugs, medicaments and biological substances
CPT/HCPCS: 36415; 71046; 71275; 80053; 81001; 83735; 84484; 85025; 85379; 86850; 86900; 86901; 93005; 99285; Q9967

== ENCOUNTER 2023-11-19 08:33 | Emergency (ER) | payer MEDICAID ==
[~2023-11-19] VITALS: Ht 154.9 cm; Wt 81.4 kg
[~2023-11-19 08:33] MED LIST changes: +AZIT1POW PO
[2023-11-19 09:24] LABS: Alanine Aminotransferase 12 U/L (7-40); Albumin 4.5 g/dL (3.2-4.8); Alkaline Phosphatase 82 U/L (46-116); Anion Gap 7 (5-15); Aspartate Aminotransferase 21 U/L (13-40); BUN/Creatinine Ratio 21.4 (10.0-20.0); Bilirubin, Total 0.4 mg/dL (0.2-1.0); Blood Urea Nitrogen 12 mg/dL (9-23); Calcium 8.8 mg/dL (8.5-10.1); Carbon Dioxide 25 mmol/L (20-30); Chloride 105 mmol/L (98-107); Glucose 86 mg/dL (74-106); Potassium 3.6 mmol/L (3.5-5.1); Sodium 137 mmol/L (136-145); Total Protein 7.5 g/dL (5.7-8.2)
[2023-11-19 09:38] LABS: Basophils # (auto) 0.1 10 ^3/uL (0-0.2); Eosinophils # (auto) 0.1 10 ^3/uL (0-0.8); Hemoglobin 8.9 g/dL (12.2-16.2); Lymphocytes # (auto) 1.7 10 ^3/uL (0.4-5.4); Monocytes # (auto) 0.3 10 ^3/uL (0-1.3); Nucleated Red Blood Cells % 0.1 %
[2023-11-19 09:40] LABS: Basophils % (auto) 1.1 % (0.0-2.0); Eosinophils % (auto) 1.2 % (0.0-7.0); Hematocrit 31.4 % (36.0-46.0); Lymphocytes % (auto) 21.1 % (10.0-50.0); Mean Corpuscular Hemoglobin 17.8 pg (28.0-32.0); Mean Corpuscular Hgb Conc. 28.3 g/dL (32.0-36.0); Monocytes % (auto) 3.6 % (0.0-12.0); Neutrophils # (auto) 5.9 10 ^3/uL (1.6-8.6); Red Blood Cells 4.98 10^6/uL (4.0-5.20); White Blood Cell 8.1 10^3/uL (4.4-10.8)
[2023-11-19 09:42] LABS: Red Cell Distribution Width 20.9 % (11.8-14.3)
[2023-11-19 10:08] LABS: Anisocytosis Slight; Platelet Estimate Adequate
[2023-11-19 10:09] LABS: Hypochromia Marked
[2023-11-19] MEDS: FERROUS SULFATE 325mg EC TAB PO ONE (11:00)
[2023-11-19 11:43] VITALS: BP 113/67; TEMP 97.6
[2023-11-19 12:22] VITALS: PULSE 78; RESP 18; O2SAT 96
== END 2023-11-19 12:25 | disposition home or self-care (01) ==
LOC: ER 08:33
DX: D64.9 Anemia, unspecified (principal); Z88.6 Allergy status to analgesic agent
CPT/HCPCS: 36415; 80053; 82962; 85025; 86850; 86900; 86901; 93005

== ENCOUNTER 2023-11-25 19:11 | Emergency (ER) | payer MEDICAID ==
[~2023-11-25] VITALS: Ht 154.9 cm; Wt 83.6 kg
[2023-11-25 22:35] LABS: Basophils # (auto) 0 10 ^3/uL (0-0.2); Basophils % (auto) 0.5 % (0.0-2.0); Eosinophils # (auto) 0.2 10 ^3/uL (0-0.8); Eosinophils % (auto) 2.5 % (0.0-7.0); Hematocrit 29.9 % (36.0-46.0); Hemoglobin 8.4 g/dL (12.2-16.2); Lymphocytes # (auto) 2.8 10 ^3/uL (0.4-5.4); Lymphocytes % (auto) 33.8 % (10.0-50.0); Mean Corpuscular Hemoglobin 17.5 pg (28.0-32.0); Mean Corpuscular Volume 62.8 fL (80.0-100.0); Monocytes # (auto) 0.7 10 ^3/uL (0-1.3); Monocytes % (auto) 8.1 % (0.0-12.0); Neutrophils # (auto) 4.5 10 ^3/uL (1.6-8.6); Neutrophils % (auto) 55.1 % (37.0-80.0); Nucleated Red Blood Cells % 0.1 %; Red Blood Cells 4.77 10^6/uL (4.0-5.20); White Blood Cell 8.2 10^3/uL (4.4-10.8)
[2023-11-25 22:52] LABS: Alanine Aminotransferase 12 U/L (7-40); Albumin 4.3 g/dL (3.2-4.8); Alkaline Phosphatase 72 U/L (46-116); Anion Gap 7 (5-15); Anisocytosis Slight; Aspartate Aminotransferase 16 U/L (13-40); BUN/Creatinine Ratio 20.8 (10.0-20.0); Bilirubin, Total 0.3 mg/dL (0.2-1.0); Blood Urea Nitrogen 15 mg/dL (9-23); Calcium 8.8 mg/dL (8.7-10.4); Carbon Dioxide 27 mmol/L (20-30); Chloride 103 mmol/L (98-107); Glucose 99 mg/dL (74-106); Hypochromia Marked; Platelet Estimate Adequate; Potassium 3.8 mmol/L (3.5-5.1); Sodium 137 mmol/L (136-145); Stomatocytes Few; Total Protein 7.4 g/dL (5.7-8.2)
[2023-11-25 22:53] LABS: Target Cell FEW
[2023-11-26 02:34] LABS: Urine Bacteria NONE SEEN /hpf (None Seen); Urine Blood Negative /uL (Negative); Urine Clarity HAZY (Clear); Urine Color Yellow (Yellow); Urine Protein, UAD TRACE (Negative); Urine Specific Gravity 1.023 (1.001-1.035); Urine Urobilinogen Normal (Negative); Urine WBC 1 /hpf (0 - 5)
[2023-11-26] MEDS ORDERED: CYCL-837 PO (02:41)
[2023-11-26 04:18] VITALS: BP 132/68; PULSE 64; RESP 18; TEMP 98.2; O2SAT 100
== END 2023-11-26 04:18 | disposition home or self-care (01) ==
LOC: ER 19:11
DX: D50.9 Iron deficiency anemia, unspecified (principal); K21.9 Gastro-esophageal reflux disease without esophagitis; J45.909 Unspecified asthma, uncomplicated; E78.5 Hyperlipidemia, unspecified; I10 Essential (primary) hypertension; F12.10 Cannabis abuse, uncomplicated; Z87.442 Personal history of urinary calculi; Z90.49 Acquired absence of other specified parts of digestive tract; Z98.51 Tubal ligation status; Z88.6 Allergy status to analgesic agent; Z32.02 Encounter for pregnancy test, result negative
CPT/HCPCS: 36415; 74176; 80053; 81001; 81025; 85025

== ENCOUNTER 2024-05-25 10:35 | Emergency (ER) | payer MEDICAID ==
[~2024-05-25] VITALS: Ht 180.3 cm; Wt 86.0 kg
[2024-05-25 11:48] LABS: Urine Bacteria None Seen /hpf (None Seen)
[2024-05-25] MEDS: SODIUM CHLORIDE 0.9% 1,000 ML IV ONE ×2 (12:05→18:29)
[2024-05-25] MEDS: TAMSULOSIN HYDROCHLORIDE 0.4 MG CAP PO ONE ×2 (12:17→12:33)
[2024-05-25] MEDS: KETOROLAC TROMETH 30 MG/ML 1ML VIAL IV ONE (12:18)
[2024-05-25 12:34] LABS: Urine Blood 2+ /uL (Negative); Urine Clarity Clear (Clear); Urine Color Light-Yellow (Yellow); Urine Mucus FEW (None Seen); Urine Protein, UAD Negative (Negative); Urine Specific Gravity 1.022 (1.001-1.035); Urine Urobilinogen Normal (Negative); Urine WBC <1 /hpf (0 - 5)
[2024-05-25 13:12] LABS: Eosinophils # (auto) 0.1 10 ^3/uL (0-0.8); Hemoglobin 8.5 g/dL (12.2-16.2); Lymphocytes # (auto) 1.6 10 ^3/uL (0.4-5.4); Neutrophils # (auto) 3.6 10 ^3/uL (1.6-8.6); White Blood Cell 5.7 10^3/uL (4.4-10.8)
[2024-05-25 13:16] LABS: Basophils # (auto) 0 10 ^3/uL (0-0.2); Basophils % (auto) 0.8 % (0.0-2.0); Eosinophils % (auto) 2.1 % (0.0-7.0); Mean Corpuscular Hemoglobin 19.9 pg (28.0-32.0); Mean Corpuscular Hgb Conc. 29.3 g/dL (32.0-36.0); Mean Corpuscular Volume 67.8 fL (80.0-100.0); Monocytes # (auto) 0.3 10 ^3/uL (0-1.3); Monocytes % (auto) 5.6 % (0.0-12.0); Neutrophils % (auto) 63.5 % (37.0-80.0); Nucleated Red Blood Cells % 0.3 %; Platelet Count (auto) 374 10^3/uL (140-450); Red Blood Cells 4.28 10^6/uL (4.0-5.20)
[2024-05-25 13:25] LABS: Calcium 9.1 mg/dL (8.7-10.4); Chloride 106 mmol/L (98-107); Potassium 3.8 mmol/L (3.5-5.1); Sodium 137 mmol/L (136-145)
[2024-05-25 13:26] LABS: Anion Gap 6 (5-15); Carbon Dioxide 25 mmol/L (20-30)
[2024-05-25 13:28] LABS: Red Cell Distribution Width 22.4 % (11.8-14.3)
[2024-05-25 13:31] LABS: BUN/Creatinine Ratio 13.4 (10.0-20.0); Blood Urea Nitrogen 13 mg/dL (9-23); Glucose 72 mg/dL (74-106)
[2024-05-25 16:09] LABS: Anisocytosis Slight; Hypochromia Marked; Platelet Estimate Adequate; Stomatocytes Few
[2024-05-25 19:15] VITALS: RESP 14
[2024-05-25] MEDS: MORPHINE SULFATE 4 MG/ML SYR/VIAL IV ONE (21:36)
[2024-05-26] MEDS ORDERED: LEVO500T91 PO (00:25)
[2024-05-26] MEDS ORDERED: HYDR-4902 PO (00:25)
[2024-05-26 02:05] VITALS: BP 164/103; PULSE 83; RESP 18; TEMP 98.5; O2SAT 99
[2024-05-26] MEDS: HYDROcodone-ACET 5/325MG TAB PO ONE (02:12)
== END 2024-05-26 02:13 | disposition home or self-care (01) ==
LOC: ER 10:35
DX: N20.0 Calculus of kidney (principal); I10 Essential (primary) hypertension; E78.5 Hyperlipidemia, unspecified; K21.9 Gastro-esophageal reflux disease without esophagitis; J45.909 Unspecified asthma, uncomplicated; F15.90 Other stimulant use, unspecified, uncomplicated; Z86.2 Personal history of diseases of the blood and blood-forming organs and certain disorders involving the immune mechanism; Z98.890 Other specified postprocedural states; Z79.899 Other long term (current) drug therapy; Z88.8 Allergy status to other drugs, medicaments and biological substances
CPT/HCPCS: 36415; 74176; 80048; 81001; 85025; 96361; 96374; 96375; 99285; J1885; J2270; J7030

== ENCOUNTER 2025-01-25 11:13 | Emergency (ER) | payer MEDICAID ==
[~2025-01-25] VITALS: Ht 154.9 cm; Wt 85.4 kg
[~2025-01-25 11:13] MED LIST changes: +HYDR-4902 PO; +LEVO500T91 PO
--- NOTE | 2025-01-25 11:18 | ECG ---
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
[2025-01-25 11:38] LABS: Eosinophils # (auto) 0.1 10 ^3/uL (0-0.8); Hemoglobin 9.2 g/dL (12.2-16.2); Lymphocytes # (auto) 1.5 10 ^3/uL (0.4-5.4); Neutrophils # (auto) 2.4 10 ^3/uL (1.6-8.6); Nucleated Red Blood Cells % 0.1 %
[2025-01-25] MEDS: ASPirin 325 MG TAB PO ONE (11:39)
[2025-01-25] MEDS: ALPRAZolam 0.25 MG TAB PO ONE (11:39)
[2025-01-25 11:40] LABS: Basophils # (auto) 0.1 10 ^3/uL (0-0.2); Basophils % (auto) 1.4 % (0.0-2.0); Eosinophils % (auto) 2.6 % (0.0-7.0); Hematocrit 30.9 % (36.0-46.0); Lymphocytes % (auto) 34.5 % (10.0-50.0); Mean Corpuscular Hgb Conc. 29.6 g/dL (32.0-36.0); Mean Corpuscular Volume 70.9 fL (80.0-100.0); Monocytes # (auto) 0.4 10 ^3/uL (0-1.3); Monocytes % (auto) 8.1 % (0.0-12.0); Neutrophils % (auto) 53.4 % (37.0-80.0); Platelet Count (auto) 380 10^3/uL (140-450); Red Blood Cells 4.35 10^6/uL (4.0-5.20); White Blood Cell 4.4 10^3/uL (4.4-10.8)
[2025-01-25 11:43] VITALS: PULSE 89
[2025-01-25 11:45] LABS: Red Cell Distribution Width 25.6 % (11.8-14.3)
--- NOTE | 2025-01-25 11:47 | ED.PDOC ---
HPI Comments 39 y/o F, BIBA, with PMHx of asthma, anemia, seizures, mitral valve prolapse, HLD, HTN, and kidney stones presents to the ED for CC of chest pain. EMS reports, patient is coming home where she complains of substernal chest pain onset, 0900 this morning (01/25/25). Patient reports, chest pain to be pressure like in sensation that radiates into her right shoulder. Patient relays, that she recently saw a tank insulator rubber for symptoms and was told to have mitral valve prolapse; which was told to be cause of symptoms. Despite patient's extensive medical history, patient endorses non-compliance with all medications. Patient denies shortness of breath, palpitations, nausea, vomiting, or headache. No other symptoms or modifying factors present at this time. Chief Complaint: Chest Pain Time Seen by MD: 11:10 Primary Care Provider: EMANUEL Reviewed Notes: Nurses Notes, Equipment Service Engineer Notes, Medications, Allergies Allergies: Coded Allergies: Ibuprofen (Verified Allergy, Mild, STOMACH IRRITATION, 08/07/13) Metoclopramide (Verified Allergy, Unknown, 02/16/14) Home Meds Active Scripts Hydrocodone-Acetaminophen (Hydrocodone Bitartrate/AC 5-325 mg) 1 Tab Tab, 1 TAB PO QIDPRN, #20 TAB Prov:DICK BARNES MD 05/26/24 Levofloxacin Hemihydrate (LEVAQUIN 500 MG) 500 Mg Tab, 500 MG PO DAILY for 7 Days, #7 TAB Prov:DICK BARNES MD 05/26/24 Cyclobenzaprine Hcl (Cyclobenzaprine Hcl) 5 Mg Tab, 1 TAB PO QPM PRN, #30 TAB Prov:MARY CABRERA 11/26/23 Azithromycin (Zithromax) 1 Gm Pow, 1 PACK PO ONCE, #1 PACK Prov:JULIETTE ADAMES MD 06/27/23 Tamsulosin Hcl (Flomax) 0.4 Mg Cap, 1 CAP PO DAILY for 6 Days, #6 CAP 0 Refills Prov:GIL HOPKINS 03/24/23 Tramadol Hcl (Tramadol Hcl) 50 Mg Tab, 50 MG PO QIDP, #10 TAB 0 Refills Prov:GIL HOPKINS 03/24/23 Cyclobenzaprine Hcl (Cyclobenzaprine Hcl) 5 Mg Tab, 1 TAB PO QPM PRN, #14 TAB 0 Refills Prov:GIL HOPKINS 03/24/23 Ferrous Sulfate (FERROUS SULFATE) 325 Mg Tb, 325 MG PO BID for 30 Days, #60 TAB Prov:DANA MARY Q MANUFACTURER AGENT 02/08/23 Ondansetron Odt 4MG Tab (ZOFRAN PO) 4 Mg Tb, 1 TAB PO Q8HR, #20 TAB ODT TAB-DISSOLVE IN MOUTH, THEN SWALLOW as needed for nausea/vomiting Prov:DANA MARY Q MANUFACTURER AGENT 02/08/23 Ibuprofen Micronized (MOTRIN TABLET) 600 Mg Tb, 1 TAB PO TID PRN, #20 TAB as needed for pain Prov:DANA MARY Q MANUFACTURER AGENT 02/08/23 Ondansetron (Zofran) 4 Mg Tab, 1 TAB PO Q6HR, #20 TAB Prov:JULIETTE ADAMES MD 10/25/22 Ferrous Sulfate (Iron) 325 Mg Tab, 325 MG PO BID for 30 Days, #60 TAB 3 Refills Prov:PK CHAPMAN MD 02/07/22 Sucralfate (Carafate) 1 Gm/10 Ml Yesenia, 1 GM PO QID for 30 Days, #120 ML Prov:PK CHAPMAN MD 02/07/22 Pantoprazole Sodium Sesquihydr (Pantoprazole Sodium) 40 Mg Tab, 40 MG PO BID for 30 Days, #60 TAB 1 Refill Prov:PK CHAPMAN MD 02/07/22 Information Source: Patient, Emergency Med Personnel Mode of Arrival: EMS Severity: Moderate Timing: Hours Duration: Since onset Prehospital treatment: None Location: Substernal Radiation: Shoulder (R) Quality: Pressure Onset: At Rest Cardiac Risk Factors: HTN, Drugs PE Risk Factors: None History of: None Modifying Factors: Nothing Associated Signs and Symptoms: None Past Medical History PAST MEDICAL HISTORY: Anemia, Asthma, GERD, High Lipids, HTN, Kidney Stones, Seizures Surgical History: Cholecystectomy, , 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 Family History Family History: Family hx of HTN Social History Smoker: Non-Smoker Alcohol: Occasionally Drugs: Marijuana Lives In: Home Constitutional: denies: chills, diaphoresis, fatigue, fever, malaise, sweats, weakness, others EENTM: denies: blurred vision, double vision, ear bleeding, ear discharge, ear drainage, ear pain, ear ringing, eye pain, eye redness, hearing loss, mouth pain, mouth swelling, nasal discharge, nose bleeding, nose congestion, nose pain, photophobia, tearing, throat pain, throat swelling, voice changes, others Respiratory: denies: cough, hemoptysis, orthopnea, SOB at rest, shortness of breath, SOB with excertion, stridor, wheezing, others Cardiovascular: reports: chest pain; denies: dizzy spells, diaphoresis, Dyspnea on exertion, edema, irregular heart beat, left arm pain, lightheadedness, palpitations, PND, syncope, others Gastrointestinal: denies: abdomen distended, abdominal pain, blood streaked bowels, constipated, diarrhea, dysphagia, difficulty swallowing, hematemesis, melena, nausea, poor appetite, poor fluid intake, rectal bleeding, rectal pain, vomiting, others Genitourinary: denies: abnormal vagina bleeding, burning, dyspareunia, dysuria, flank pain, frequency, hematuria, incontinence, pain, , vagina discharge, urgency, others Neurological: denies: dizziness, fainting, headache, left sided numbness, left sided weakness, numbness, paresthesia, pre-existing deficit, right sided numbness, right sided weakness, seizure, speech problems, tingling, tremors, weakness, others Musculoskeletal: denies: back pain, gout, joint pain, joint swelling, muscle pain, muscle stiffness, neck pain, others Integumetry: denies: bruises, change in color, change in hair/nails, dryness, laceration, lesions, lumps, rash, wounds, others Allergic/Immunocompromised: denies: Difficulty Healing, Frequent Infections, Hives, Itching, others Hematologic/Lymphatic: denies: anemia, blood clots, easy bleeding, easy bruising, swollen glands, others Endocrine: denies: excessive hunger, excessive sweating, excessive thirst, excessive urination, flushing, intolerance to cold, intolerance to heat, unexplained weight gain, unexplained weight loss, others Psychiatric: denies: anxiety, bipolar disorder, depression, hopeless, panic disorder, schizophrenia, sleepless, suicidal, others All Other Systems: Reviewed and Negative Physical Exam General Appearance: Mild Distress, Normal, Other (anxious) HEENT: Normal ENT Inspection, Pharynx Normal, TMs Normal Neck: Full Range of Motion, Non-Tender, Normal, Normal Inspection Respiratory: Chest Non-Tender, Lungs Clear, No Accessory Muscle Use, No Respiratory Distress, Normal Breath Sounds Cardiovascular: No Edema, No Murmur, No Gallop, Normal Peripheral Pulses, Regular Rate/Rhythm, Other (tender right sided chest wall) Breast Exam: Deferred Gastrointestinal: No Organomegaly, Non Tender, No Pulsatile Mass, Normal Bowel Sounds, Soft Genitalia: Deferred Pelvic: Deferred Rectal: Deferred Extremities: No calf tenderness, Normal capillary refill, Normal inspection, No rmal range of motion, Non-tender, No pedal edema Musculoskeletal : Apperance: Normal Neurologic: Alert, line maintainer section II-XII nml as Tested, No Motor Deficits, Normal Affect, Normal Mood, No Sensory Deficits Cerebellar Function: Normal Reflexes: Normal Skin: Dry, Normal Color, Warm Lymphatic: No Adenopathy EKG EKG : Pulse Rate (adult): 87 [place]: Normal Cardiac Rhythm: NSR Block: None Hypertrophy: None ST: Nonsp Was a procedure done? Was a procedure done?: No CP Differential Dx Differential Diagnosis: A-fib, A-Flutter, Angina, Anxiety / Panic Attack, Atrial Dysrhythmia, AV Block 1st Degree, AV Block 2nd Degree, AV Block 3rd Degree, Electrolyte Disorder, Hyperventilation, Hypoxia, MAT, FL, PAC's Differential Diagnosis: CHF, HTN Essential, HTN Accelerated Differential Diagnosis: Angina, Aortic dissection, Chest Wall Pain, Costochondritis, Esophageal reflux/spasm, Gastritis, Myocardial Infarction, Pericarditis, Pneumonia, Pneumothorax, Pulmonary Embolus X-Ray, Labs, Meds, VS Vital Signs Date Time Temp Pulse Resp B/P (MAP) Pulse Ox O2 Delivery O2 Flow Rate FiO2 01/25/25 14:32 98.2 80 16 122/80 (94) 95 98.2 01/25/25 12:12 76 01/25/25 11:43 89 01/25/25 11:43 98.1 89 15 147/86 (106) 98 98.1 01/25/25 11:16 98.1 104 26 124/82 (96) 99 98.1 01/25/25 11:16 87 Lab Test 01/25/25 14:17 01/25/25 12:15 01/25/25 11:25 Range/Units Troponin I High Sensitivity < 3 L < 3 L < 3 L </=34 ng/L White Blood Count 4.4 4.4-10.8 10^3/uL Red Blood Count 4.35 4.0-5.20 10^6/uL Hemoglobin 9.2 L 12.2-16.2 g/dL Hematocrit 30.9 L 36.0-46.0 % Mean Corpuscular Volume 70.9 L 80.0-100.0 fL Mean Corpuscular Hemoglobin 21.0 L 28.0-32.0 pg Mean Corpuscular Hemoglobin Concent 29.6 L 32.0-36.0 g/dL Red Cell Distribution Width 25.6 H 11.8-14.3 % Platelet Count 380 140-450 10^3/uL Mean Platelet Volume 6.6 L 6.9-10.8 fL Neutrophils (%) (Auto) 53.4 37.0-80.0 % Lymphocytes (%) (Auto) 34.5 10.0-50.0 % Monocytes (%) (Auto) 8.1 0.0-12.0 % Eosinophils (%) (Auto) 2.6 0.0-7.0 % Basophils (%) (Auto) 1.4 0.0-2.0 % Neutrophils # (Auto) 2.4 1.6-8.6 10 ^3/uL Lymphocytes # (Auto) 1.5 0.4-5.4 10 ^3/uL Monocytes # (Auto) 0.4 0-1.3 10 ^3/uL Eosinophils # (Auto) 0.1 0-0.8 10 ^3/uL Basophils # (Auto) 0.1 0-0.2 10 ^3/uL Nucleated Red Blood Cells 0.1 % Platelet Estimate Adequate Large Platelets Few Hypochromasia (manual) Marked Anisocytosis (manual) Moderate Microcytosis Moderate Ovalocytes Few Stomatocytes Moderate Sodium Level 137 136-145 mmol/L Potassium Level 3.4 L 3.5-5.1 mmol/L Chloride Level 104 98-107 mmol/L Carbon Dioxide Level 23 20-31 mmol/L Anion Gap 10 5-15 Blood Urea Nitrogen 11 9-23 mg/dL Creatinine 0.67 0.550-1.02 mg/dL Glomerular Filtration Rate Calc 115 >90 mL/min BUN/Creatinine Ratio 16.4 10.0-20.0 Serum Glucose 96 74-106 mg/dL Calcium Level 9.4 8.7-10.4 mg/dL Current Medications Medications (Trade) Dose Ordered Sig/Desmond Route Start Time Stop Time Status Last Admin Aspirin 325 mg ONCE ONCE PO 01/25/25 11:30 01/25/25 11:31 DC 01/25/25 11:39 Alprazolam (Xanax Tablet) 0.25 mg ONCE ONCE PO 01/25/25 11:30 01/25/25 11:31 DC 01/25/25 11:39 Lorazepam (Ativan Inj) 1 mg ONCE ONCE IV 01/25/25 13:30 01/25/25 13:31 DC 01/25/25 13:35 Time of 1ST Reevaluation: 11:40 Reevaluation 1ST: Unchanged Time of 2ND Reevaluation: 15:46 Reevaluation 2ND: Resolved Patient Education/Counseling: Diagnosis, Treatment, Prognosis, Need For Follow Up Family Education/Counseling: No Family Present Additional Information The following tests were ordered, and results were reviewed by me: EKG X3, TROPONIN X3, CBC, CMP, TEST URINE Additional Information was gathered from interviewing the following independent historians: EMS I discussed treatment and results with medical personnel and: patient Comprehensive systems review obtained and negative except for what is stated in the HPI. pt is feeling much calmer and better. her cardiac workup is unremarkable. she is stable for discharge Departure 1 Departure Time of Disposition: 15:47 Impression: Primary Impression: Anxiety Additional Impression: MVP (mitral valve prolapse) Disposition: 01 HOME / SELF CARE / HOMELESS Condition: Stable Discharged With: Self Critical Care Note Critical Care Time?: Yes (45 min-critical care time only) Critical care comment: due to concerns for patient's condition deteriorating, the care required my highest level of attention and readiness to intervene. i assessed the patient's condition, ordered the proper tests and treatments, reassessed for response and reviewed the results. i communicated with medical personnel and formulated a plan of care. total critical care time does not include any procedures Stability Stability form required: No Heart Score Heart Score: Heart Score Response (Comments) Value History N/A 0 EKG N/A 0 Age N/A 0 Risk Factors N/A 0 Troponin N/A 0 Total 0 I personally scribed for EYAL TOWNSEND MD ([facility]) on 01/25/25 at 11:46. Electronically submitted by Kyra Cisneros ([email or web address]). I personally scribed for EYAL TOWNSEND MD ([facility]) on 01/25/25 at 11:49. Electronically submitted by Kyra Cisneros ([email or web address]). I personally scribed for EYAL TOWNSEND MD ([facility]) on 01/25/25 at 12:15. Electronically submitted by Kyra Cisneros ([email or web address]). EYAL TOWNSEND MD January 25, 2025 11:46
[2025-01-25 11:51] LABS: Chloride 104 mmol/L (98-107); Sodium 137 mmol/L (136-145)
[2025-01-25 11:52] LABS: Anion Gap 10 (5-15); Calcium 9.4 mg/dL (8.7-10.4); Carbon Dioxide 23 mmol/L (20-31)
[2025-01-25 11:53] LABS: Potassium 3.4 mmol/L (3.5-5.1)
[2025-01-25 11:57] LABS: BUN/Creatinine Ratio 16.4 (10.0-20.0); Blood Urea Nitrogen 11 mg/dL (9-23); Glucose 96 mg/dL (74-106)
--- NOTE | 2025-01-25 12:13 | ECG ---
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
[2025-01-25 13:03] LABS: Anisocytosis Moderate; Hypochromia Marked; Large Platelets FEW; Platelet Estimate Adequate; Stomatocytes Moderate
[2025-01-25 13:04] LABS: Ovalocytes FEW
[2025-01-25] MEDS: LORazepam 2MG/ML-1ML VIAL IV ONE (13:35)
[2025-01-25] MEDS: LORazepam 2MG/ML-1ML VIAL ONE (13:35)
[2025-01-25 14:32] VITALS: BP 122/80; RESP 16; TEMP 98.2; O2SAT 95
--- NOTE | 2025-01-25 15:16 | DVH ---
INDICATION: cp TECHNIQUE: Frontal view of the chest. COMPARISON: XY CHEST PORTABLE on DOS: 02/07/23, XY CHEST PORTABLE on DOS: 11/28/22 FINDINGS: . The heart and mediastinal contours are grossly unremarkable. There is no evidence of pleural disea se. The lungs are clear. The bony structures of the chest are intact without fracture. IMPRESSION: 1. No evidence of acute disease.
[2025-01-25 15:48] VITALS: PULSE 87
== END 2025-01-25 16:02 | disposition home or self-care (01) ==
LOC: ER 11:13 → EDBD 11:13 → ER 16:00
DX: I34.1 Nonrheumatic mitral (valve) prolapse (principal); F41.9 Anxiety disorder, unspecified; J45.909 Unspecified asthma, uncomplicated; E78.5 Hyperlipidemia, unspecified; I10 Essential (primary) hypertension; D64.9 Anemia, unspecified; K21.9 Gastro-esophageal reflux disease without esophagitis; F10.90 Alcohol use, unspecified, uncomplicated; Y90.9 Presence of alcohol in blood, level not specified; F19.90 Other psychoactive substance use, unspecified, uncomplicated; N80.9 Endometriosis, unspecified; Z79.899 Other long term (current) drug therapy; Z88.6 Allergy status to analgesic agent; Z98.890 Other specified postprocedural states; Z98.51 Tubal ligation status; Z90.49 Acquired absence of other specified parts of digestive tract; Z87.442 Personal history of urinary calculi
CPT/HCPCS: 36415; 71045; 80048; 84484; 85025; 93005; 96374; 99285; J2060

== ENCOUNTER 2025-03-31 15:56 | Emergency (ER) | payer MEDICAID ==
[~2025-03-31] VITALS: Ht 154.9 cm; Wt 82.7 kg
[2025-03-31 17:44] VITALS: TEMP 98.8
[2025-03-31] MEDS: LORazepam 2MG/ML-1ML VIAL ONE (17:51)
[2025-03-31] MEDS: LORazepam 2MG/ML-1ML VIAL IV ONE (17:51)
[2025-03-31] MEDS: levETIRAcetam 1000 mg/100ml 100 ML IV ONE (18:07)
--- NOTE | 2025-03-31 18:08 | ED.PDOC ---
Nadja. trauma (HPI) HPI Comments 39 y/o F, with PMhx of anemia, asthma, GERD, HLD, HTN and seizures presents to the ED for CC of s/p fall injury. Patient reports, that she was playing around with kids and today (03/31/25) when she accidently rolled over on hitting her left congregation against a side table. Patient has visible 4mm laceration to left congregation. Patient endorses, following trauma to fell groggy and to have a slight headache. Upon arrival, to the ED patient had a seizure in the ER lobby prompting a rapid response. Patient was moved, to ER bed 08 for further care. Chief Complaint: Fall Injury Time Seen by MD: 18:00 Primary Care Provider: EMANUEL Reviewed notes: Nurses Notes, Medications, Allergies Allergies: Coded Allergies: Ibuprofen (Verified Allergy, Mild, STOMACH IRRITATION, 08/07/13) Metoclopramide (Verified Allergy, Unknown, 02/16/14) Home Meds Active Scripts Hydrocodone-Acetaminophen (Hydrocodone Bitartrate/AC 5-325 mg) 1 Tab Tab, 1 TAB PO QIDPRN, #20 TAB Prov:DICK BARNES MD 05/26/24 Levofloxacin Hemihydrate (LEVAQUIN 500 MG) 500 Mg Tab, 500 MG PO DAILY for 7 Days, #7 TAB Prov:DICK BARNES MD 05/26/24 Cyclobenzaprine Hcl (Cyclobenzaprine Hcl) 5 Mg Tab, 1 TAB PO QPM PRN, #30 TAB Prov:MARY CABRERA 11/26/23 Azithromycin (Zithromax) 1 Gm Pow, 1 PACK PO ONCE, #1 PACK Prov:JULIETTE ADAMES MD 06/27/23 Tamsulosin Hcl (Flomax) 0.4 Mg Cap, 1 CAP PO DAILY for 6 Days, #6 CAP 0 Refills Prov:GIL HOPKINS 03/24/23 Tramadol Hcl (Tramadol Hcl) 50 Mg Tab, 50 MG PO QIDP, #10 TAB 0 Refills Prov:GIL HOPKINS 03/24/23 Cyclobenzaprine Hcl (Cyclobenzaprine Hcl) 5 Mg Tab, 1 TAB PO QPM PRN, #14 TAB 0 Refills Prov:GIL HOPKINS 03/24/23 Ferrous Sulfate (FERROUS SULFATE) 325 Mg Tb, 325 MG PO BID for 30 Days, #60 TAB Prov:TYRADANA Q JAILOR 02/08/23 Ondansetron Odt 4MG Tab (ZOFRAN PO) 4 Mg Tb, 1 TAB PO Q8HR, #20 TAB ODT TAB-DISSOLVE IN MOUTH, THEN SWALLOW as needed for nausea/vomiting Prov:MARYWILLIAMSALDA Q JAILOR 02/08/23 Ibuprofen Micronized (MOTRIN TABLET) 600 Mg Tb, 1 TAB PO TID PRN, #20 TAB as needed for pain Prov:AUGIE MARYA Q JAILOR 02/08/23 Ondansetron (Zofran) 4 Mg Tab, 1 TAB PO Q6HR, #20 TAB Prov:JULIETTE ADAEMS MD 10/25/22 Ferrous Sulfate (Iron) 325 Mg Tab, 325 MG PO BID for 30 Days, #60 TAB 3 Refills Prov:PK CHAPMAN MD 02/07/22 Sucralfate (Carafate) 1 Gm/10 Ml Yesenia, 1 GM PO QID for 30 Days, #120 ML Prov:PK CHAPMAN MD 02/07/22 Pantoprazole Sodium Sesquihydr (Pantoprazole Sodium) 40 Mg Tab, 40 MG PO BID for 30 Days, #60 TAB 1 Refill Prov:PK CHAPMAN MD 02/07/22 Information Source: Patient Mode of Arrival: Ambulatory Severity: Moderate Timing: Minutes Duration: Since onset Prehospital treatment: None Location: Head Location of laceration: Head Mechanism: Fall Associated signs and symtoms: None Past Medical History PAST MEDICAL HISTORY: Anemia, Asthma, GERD, High Lipids, HTN, Kidney Stones, Seizures Surgical History: Cholecystectomy, , 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 Family History Family History: Family hx of HTN Social History Smoker: Non-Smoker Alcohol: Occasionally Drugs: Marijuana Lives In: Home Constitutional: denies: chills, diaphoresis, fatigue, fever, malaise, sweats, weakness, others EENTM: denies: blurred vision, double vision, ear bleeding, ear discharge, ear drainage, ear pain, ear ringing, eye pain, eye redness, hearing loss, mouth pain, mouth swelling, nasal discharge, nose bleeding, nose congestion, nose pain, photophobia, tearing, throat pain, throat swelling, voice changes, others Respiratory: denies: cough, hemoptysis, orthopnea, SOB at rest, shortness of breath, SOB with excertion, stridor, wheezing, others Cardiovascular: denies: chest pain, dizzy spells, diaphoresis, Dyspnea on exertion, edema, irregular heart beat, left arm pain, lightheadedness, palpitations, PND, syncope, others Gastrointestinal: denies: abdomen distended, abdominal pain, blood streaked bowels, constipated, diarrhea, dysphagia, difficulty swallowing, hematemesis, melena, nausea, poor appetite, poor fluid intake, rectal bleeding, rectal pain, vomiting, others Genitourinary: denies: abnormal vagina bleeding, burning, dyspareunia, dysuria, flank pain, frequency, hematuria, incontinence, pain, , vagina discharge, urgency, others Neurological: reports: headache; denies: dizziness, fainting, left sided numbness, left sided weakness, numbness, paresthesia, pre-existing deficit, right sided numbness, right sided weakness, seizure, speech problems, tingling, tremors, weakness, others Musculoskeletal: denies: back pain, gout, joint pain, joint swelling, muscle pain, muscle stiffness, neck pain, others Integumetry: denies: bruises, change in color, change in hair/nails, dryness, laceration, lesions, lumps, rash, wounds, others Allergic/Immunocompromised: denies: Difficulty Healing, Frequent Infections, Hives, Itching, others Hematologic/Lymphatic: denies: anemia, blood clots, easy bleeding, easy bruising, swollen glands, others Endocrine: denies: excessive hunger, excessive sweating, excessive thirst, excessive urination, flushing, intolerance to cold, intolerance to heat, unexplained weight gain, unexplained weight loss, others Psychiatric: denies: anxiety, bipolar disorder, depression, hopeless, panic disorder, schizophrenia, sleepless, suicidal, others All Other Systems: Reviewed and Negative Physical Exam General Appearance: No Apparent Distress, Normal HEENT: Normal ENT Inspection, Pharynx Normal Neck: Full Range of Motion, Non-Tender, Normal, Normal Inspection Respiratory: Chest Non-Tender, Lungs Clear, No Accessory Muscle Use, No Respiratory Distress, Normal Breath Sounds Cardiovascular: No Edema, No Murmur, No Gallop, Normal Peripheral Pulses, Regular Rate/Rhythm Breast Exam: Deferred Gastrointestinal: No Organomegaly, Non Tender, No Pulsatile Mass, Normal Bowel Sounds, Soft Genitalia: Deferred Pelvic: Deferred Rectal: Deferred Extremities: No calf tenderness, Normal capillary refill, Normal inspection, Normal range of motion, Non-tender, No pedal edema Musculoskeletal : Apperance: Normal Neurologic: Alert, 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 Was a procedure done?: Yes Sedation Sedation?: No Laceration Repair : Location SCALP Length 4MM Anesthetic: Nothing Laceration Repair Prep: Saline Laceration Repair Wound Comple: epidermis/dermis repair Laceration Repair: Dermabond Informed consent obtained: Yes Risks, benefits, and alternati: Yes Differential Diagnosis Multiple Trauma: Laceration X-Ray, Labs, Meds, VS Vital Signs Date Time Temp Pulse Resp B/P (MAP) Pulse Ox O2 Delivery O2 Flow Rate FiO2 03/31/25 17:44 98.8 101 24 125/67 (86) 96 98.8 03/31/25 16:08 98.1 80 18 141/87 (105) 98 98.1 Current Medications Medications (Trade) Dose Ordered Sig/Desmond Route Start Time Stop Time Status Last Admin Lorazepam (Ativan Inj) 1 mg ONCE ONCE IV 03/31/25 17:45 03/31/25 17:46 DC 03/31/25 17:51 Levetiracetam 100 ml @ 400 mls/hr ONCE ONCE IV 03/31/25 17:45 03/31/25 17:59 DC 03/31/25 18:07 Sodium Chloride 1,000 ml @ 1,000 mls/hr Q1H ONCE IV 03/31/25 19:00 03/31/25 19:59 03/31/25 19:00 X-Ray, Labs, Meds, VS Comment IMAGING: X-RAYS AND CT SCANS WERE REVIEWED AND INTERPRETED BY THIS PROVIDER, IMAGING SHOWS NO FRACTURES AND NO PATHOLOGICAL DISEASE. PENDING RADIOLOGY REVIEW. LABORATORY: LABS REVIEWED AND INTERPRETED BY THIS PROVIDER. NO SIGNIFICANT ABNORMALITIES NOTED. PATIENT HAS PRIOR MEDICAL VISITS REVIEWED. MED RECONCILIATION PERFORMED VITAL SIGNS REVIEWED Time of 1ST Reevaluation: 18:30 Reevaluation 1ST: Unchanged Patient Education/Counseling: Diagnosis, Treatment, Need For Follow Up (FOLLOW UP IN THE EMERGENCY DEPARTMENT IN THE NEXT 24-48 HOURS IF SYMPTOMS WORSEN. IT WAS ADVISED TO FOLLOW UP WITH YOUR PRIMARY CARE DOCTOR IN THE NEXT 3-4 DAYS FOR FURTHER EVALUATION.) Family Education/Counseling: No Family Present Departure 1 Departure Time of Disposition: 19:59 Impression: Primary Impression: Recurrent seizures Additional Impression: Laceration of head Qualified Codes: S01.01XA - Laceration without foreign body of scalp, initial encounter Disposition: HOME / SELF CARE / HOMELESS Condition: Fair Discharged With: Spouse Critical Care Note Critical Care Time?: No Stability Stability form required: No Heart Score Heart Score: Heart Score Response (Comments) Value History N/A 0 EKG N/A 0 Age N/A 0 Risk Factors N/A 0 Troponin N/A 0 Total 0 I personally scribed for MARY CABRERA ([email or web address]) on 03/31/25 at 18:08. Electronically submitted by Kyra Cisneros ([email or web address]). MARY CABRERA Mar 31, 2025 18:08
--- NOTE | 2025-03-31 18:42 | DVH ---
CT HEAD WITHOUT CONTRAST Indication: HEAD INJURY EXAM DATE: 03/31/2025 06:13 PM COMPARISON: CT HEAD WITHOUT CONTRAST on DOS: 07/02/23, CT HEAD WITHOUT CONTRAST on DOS: 02/07/23, CT HE AD WITHOUT CONTRAST on DOS: 11/28/22 TECHNIQUE: CT of the head without intravenous contrast. RADIATION DOSE: CTDIvol: 57.3 mGy, DLP: 918 mGy*cm FINDINGS: There is no intracranial hemorrhage. There is no extra-axial fluid, mass, mass effect or midline shif t. The ventricles are midline and normal in size. Basilar cisterns are patent. Mckeon-white differentia tion is maintained. Mastoids are well pneumatized. Left maxillary sinus mucosal retention cyst/ polyp measuring 2 cm.. Im aged portion of the orbits are unremarkable. IMPRESSION: No intracranial hemorrhage or mass effect.
[2025-03-31 19:00] VITALS: BP 102/55; PULSE 97; RESP 24; O2SAT 95
[2025-03-31] MEDS: SODIUM CHLORIDE 0.9% 1,000 ML IV ONE (19:00)
[2025-03-31] MEDS: ONDANSETRON HCL 4 MG/2 ML VIAL IV ONE (20:00)
[2025-03-31] MEDS: KETOROLAC TROMETH 30 MG/ML 1ML VIAL IV ONE (20:00)
== END 2025-03-31 20:27 | disposition home or self-care (01) ==
LOC: ER 15:56
DX: S01.81XA Laceration without foreign body of other part of head, initial encounter (principal); I10 Essential (primary) hypertension; E78.5 Hyperlipidemia, unspecified; K21.9 Gastro-esophageal reflux disease without esophagitis; J45.909 Unspecified asthma, uncomplicated; D64.9 Anemia, unspecified; Z79.899 Other long term (current) drug therapy; Z90.49 Acquired absence of other specified parts of digestive tract; Z98.51 Tubal ligation status; Z88.6 Allergy status to analgesic agent; Z88.8 Allergy status to other drugs, medicaments and biological substances; W22.8XXA Striking against or struck by other objects, initial encounter; Y93.89 Activity, other specified; Y92.89 Other specified places as the place of occurrence of the external cause; Y99.8 Other external cause status
CPT/HCPCS: 12001; 70450; 96361; 96365; 96375; 99285; J1953; J2060; J7030; 12011

== ENCOUNTER 2025-04-28 07:11 | Emergency (ER) | payer MEDICAID ==
[~2025-04-28] VITALS: Ht 154.9 cm; Wt 80.0 kg
[2025-04-28 07:14] VITALS: BP 124/71; PULSE 87; RESP 18; TEMP 98.1; O2SAT 98
--- NOTE | 2025-04-28 07:49 | ED.PDOC ---
History of Present Illness HPI Comments A 39-YEAR-OLD FEMALE WITH A HISTORY OF ANEMIA, HYPERTENSION, HYPERLIPIDEMIA, GERD, ASTHMA, AND SEIZURES PRESENTS TO THE ED WITH A C/C OF NAUSEA AND VOMITING, WITH THE ASSOCIATED FEVER, AND A SORE THROAT. PATIENT STATES THAT HER SYMPTOMS STARTED APPROXIMATELY 3 DAYS AGO, AND NOTES NO ALLEVIATING FACTORS. PATIENT WAS ORDERED HAVE BILATERAL TONSILLAR EXUDATES UPON EXAMINATION. PATIENT DENIES ANY DIARRHEA, HEADACHE, DYSURIA, HEMATURIA, OR ANY OTHER ASSOCIATED SYMPTOMS, MODIFIERS AT THIS TIME. Chief Complaint: Flu like Time Seen by MD: 07:43 Primary Care Provider: EMANUEL Reviewed Notes: Nurses Notes, Medications, Allergies Allergies: Coded Allergies: Ibuprofen (Verified Allergy, Mild, STOMACH IRRITATION, 08/07/13) Metoclopramide (Verified Allergy, Unknown, 02/16/14) Home Meds Active Scripts Acetaminophen (Tylenol Extra Strength Fo) 500 Mg Tab, 650 MG PO QID, #30 TAB Prov:ETHAN MELVIN 04/28/25 Azithromycin (Azithromycin) 500 Mg Tab, 1 TAB PO DAILY, #5 TAB Prov:ETHAN MELVIN 04/28/25 Hydrocodone-Acetaminophen (Hydrocodone Bitartrate/AC 5-325 mg) 1 Tab Tab, 1 TAB PO QIDPRN, #20 TAB Prov:DICK BARNES MD 05/26/24 Levofloxacin Hemihydrate (LEVAQUIN 500 MG) 500 Mg Tab, 500 MG PO DAILY for 7 Days, #7 TAB Prov:DICK BARNES MD 05/26/24 Cyclobenzaprine Hcl (Cyclobenzaprine Hcl) 5 Mg Tab, 1 TAB PO QPM PRN, #30 TAB Prov:MARY CABRERA 11/26/23 Azithromycin (Zithromax) 1 Gm Pow, 1 PACK PO ONCE, #1 PACK Prov:JULIETTE ADAMES MD 06/27/23 Tamsulosin Hcl (Flomax) 0.4 Mg Cap, 1 CAP PO DAILY for 6 Days, #6 CAP 0 Refills Prov:GIL HOPKINS 03/24/23 Tramadol Hcl (Tramadol Hcl) 50 Mg Tab, 50 MG PO QIDP, #10 TAB 0 Refills Prov:GIL HOPKINS 03/24/23 Cyclobenzaprine Hcl (Cyclobenzaprine Hcl) 5 Mg Tab, 1 TAB PO QPM PRN, #14 TAB 0 Refills Prov:GIL HOPKINS 03/24/23 Ferrous Sulfate (FERROUS SULFATE) 325 Mg Tb, 325 MG PO BID for 30 Days, #60 TAB Prov:DANA MARY Q [employer] 02/08/23 Ondansetron Odt 4MG Tab (ZOFRAN PO) 4 Mg Tb, 1 TAB PO Q8HR, #20 TAB ODT TAB-DISSOLVE IN MOUTH, THEN SWALLOW as needed for nausea/vomiting Prov:DANA MARY Q [employer] 02/08/23 Ibuprofen Micronized (MOTRIN TABLET) 600 Mg Tb, 1 TAB PO TID PRN, #20 TAB as needed for pain Prov:DANA MARY Q [employer] 02/08/23 Ondansetron (Zofran) 4 Mg Tab, 1 TAB PO Q6HR, #20 TAB Prov:JULIETTE ADAMES MD 10/25/22 Ferrous Sulfate (Iron) 325 Mg Tab, 325 MG PO BID for 30 Days, #60 TAB 3 Refills Prov:PK CHAPMAN MD 02/07/22 Sucralfate (Carafate) 1 Gm/10 Ml Yesenia, 1 GM PO QID for 30 Days, #120 ML Prov:PK CHAPMAN MD 02/07/22 Pantoprazole Sodium Sesquihydr (Pantoprazole Sodium) 40 Mg Tab, 40 MG PO BID for 30 Days, #60 TAB 1 Refill Prov:PK CHAPMAN MD 02/07/22 Information Source: Patient Mode of Arrival: Ambulatory Severity: Moderate Timing: Hours Duration: Since onset (THE PATIENT RAN OUT), Hours Prehospital treatment: None Medication Refill: For: Other (SORE THROAT AND MILD COUGH ) Past Medical History PAST MEDICAL HISTORY: Anemia, Asthma, GERD, High Lipids, HTN, Kidney Stones, Seizures Past Medical History (Other): MIGRAINE HEADACHE Surgical History: Cholecystectomy, , Tubal Ligation 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 READER History: 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 Family History Family History: Family hx of HTN Social History Smoker: Non-Smoker Alcohol: Occasionally Drugs: Marijuana Lives In: Home Constitutional: reports: fever; denies: chills, diaphoresis, fatigue, malaise, sweats, weakness, others EENTM: reports: nose congestion, throat pain, throat swelling; denies: blurred vision, double vision, ear bleeding, ear discharge, ear drainage, ear pain, ear ringing, eye pain, eye redness, hearing loss, mouth pain, mouth swelling, nasal discharge, nose bleeding, nose pain, photophobia, tearing, voice changes, others Respiratory: reports: cough; denies: hemoptysis, orthopnea, SOB at rest, shortness of breath, SOB with excertion, stridor, wheezing, others Cardiovascular: denies: chest pain, dizzy spells, diaphoresis, Dyspnea on exertion, edema, irregular heart beat, left arm pain, lightheadedness, palp itations, PND, syncope, others Gastrointestinal: reports: nausea, vomiting; denies: abdomen distended, abdominal pain, blood streaked bowels, constipated, diarrhea, dysphagia, difficulty swallowing, hematemesis, melena, poor appetite, poor fluid intake, rectal bleeding, rectal pain, others Genitourinary: denies: abnormal vagina bleeding, burning, dyspareunia, dysuria, flank pain, frequency, hematuria, incontinence, pain, , vagina discharge, urgency, others Neurological: denies: dizziness, fainting, headache, left sided numbness, left sided weakness, numbness, paresthesia, pre-existing deficit, right sided numbness, right sided weakness, seizure, speech problems, tingling, tremors, weakness, others Musculoskeletal: denies: back pain, gout, joint pain, joint swelling, muscle pain, muscle stiffness, neck pain, others Integumetry: denies: bruises, change in color, change in hair/nails, dryness, laceration, lesions, lumps, rash, wounds, others Allergic/Immunocompromised: denies: Difficulty Healing, Frequent Infections, Hives, Itching, others Hematologic/Lymphatic: denies: anemia, blood clots, easy bleeding, easy bruising, swollen glands, others Endocrine: denies: excessive hunger, excessive sweating, excessive thirst, excessive urination, flushing, intolerance to cold, intolerance to heat, unex plained weight gain, unexplained weight loss, others Psychiatric: denies: anxiety, bipolar disorder, depression, hopeless, panic disorder, schizophrenia, sleepless, suicidal, others All Other Systems: Reviewed and Negative Physical Exam General Appearance: No Apparent Distress, Normal HEENT: PERRL/EOMI, Pharyngeal Erythema (TONSILLAR SWELLING WITH MILD EXUDATES. ), TMs Normal Neck: Full Range of Motion, Non-Tender, Normal, Normal Inspection Respiratory: Chest Non-Tender, Lungs Clear, No Accessory Muscle Use, No Respiratory Distress, Normal Breath Sounds Cardiovascular: No Edema, No JVD, No Murmur, No Gallop, Normal Peripheral Pulses, Regular Rate/Rhythm Breast Exam: Deferred Gastrointestinal: No Organomegaly, Non Tender, No Pulsatile Mass, Normal Bowel Sounds, Soft Genitalia: Deferred Pelvic: Deferred Rectal: Deferred Extremities: No calf tenderness, Normal capillary refill, Normal inspection, Normal range of motion, Non-tender, No pedal edema Musculoskeletal : Apperance: Normal Neurologic: Alert, cutter v groove II-XII nml as Tested, No Motor Deficits, Normal Affect, Normal Mood, No Sensory Deficits Cerebellar Function: Normal Reflexes: Normal Skin: Dry, Normal Color, Warm Peripheral Pulses: 2+ carotid (R), 2+ carotid (L) Lymphatic: No Adenopathy Was a procedure done? Was a procedure done?: No Differential Dx Considerations may include: ACUTE TONSILLITIS, PNEUMONIA, BRONCHITIS, URI X-Ray, Labs, Meds, VS Vital Signs Date Time Temp Pulse Resp B/P (MAP) Pulse Ox O2 Delivery O2 Flow Rate FiO2 04/28/25 07:14 98.1 87 18 124/71 98 98.1 Current Medications Medications (Trade) Dose Ordered Sig/Desmond Route Start Time Stop Time Status Last Admin Ceftriaxone Sodium (Rocephin) 1,000 mg ONCE ONCE IM 04/28/25 07:45 04/28/25 07:46 DC 04/28/25 08:01 PATIENT: DEEP MANDUJANO ANNACCT: [id number]: [id number] : 1985 LOC: ER ROOM / BED: / AGE / SEX: 39 / F ADM STATUS: REG ER SERVICE 0738 ORDERING PHYSICIAN: ETHAN MELVIN PROCEDURE(s): CXR1 - CHEST XRAY 1 VIEW REASON: COUGH ORDER NUMBER(s): [id number], ACCESSION NUMBER(s): [id number] CHEST RADIOGRAPH Indication:COUGH Technique: Single frontal view of the chest was obtained Comparison: none FINDINGS: Lines and Tubes: None Lungs: No focal consolidation. Pleura: No effusion. No pneumothorax. Cardiomediastinal contours: Unremarkable Bones: No acute osseous abnormality. IMPRESSION: No acute cardiopulmonary disease. ATED BY: DAX FLANNERY MD DICTATED DATE/TIME: 04/28/25816 SIGNED BY: DAX FLANNERY MD SIGNED DATE/TIME: 04/28/25816 CC: X-Ray, Labs, Meds, VS Comment COURSE: EXTERNAL MEDICAL RECORDS REVIEWED: [NONE] INDEPENDENT HISTORIANS: [NONE] SOCIAL DETERMINANTS OF HEALTH: [NONE] LABS ORDERED: NONE REVIEWED AND INTERPRETED RESULTS: NONE IMAGING ORDERED: CHEST X-RAY ORDERED: NO ACUTE FINDING, READ BY ME, PENDING RADIOLOGIST READING. TREATMENTS ORDERED: ROCEPHIN IM PROCEDURES PERFORMED: NONE CRITICAL CARE TIME: NONE I HAVE DISCUSSED THE PATIENT WITH THE ATTENDING PHYSICIAN (TERE) AND S/HE AGREES WITH THE PATIENT'S PLAN OF CARE AND DISPOSITION. BASED ON HISTORY OF PRESENT ILLNESS, AND PHYSICAL EXAM, PATIENT WILL BE DISCHARGED HOME. DISCUSSED PLAN FOR DISCHARGE HOME WITH RX [AZITHROMYCIN 500MG AND TYLENOL 650MG]. MEDICATION WARNINGS GIVEN. SHARED DECISION MAKING: DISCUSSED WITH PATIENT THAT THEIR WORKUP WAS NORMAL. PATIENT INSTRUCTED TO FOLLOW UP WITH PRIMARY CARE PROVIDER IN 1-2 DAYS FOR RE- EVALUATION OF SYMPTOMS. PATIENT VERBALIZES UNDERSTANDING TO RETURN TO ED FOR NEW OR WORSENING SYMPTOMS OR IF FOLLOW UP WITH PCP CANNOT BE OBTAINED. PATIENT FEELS COMFORTABLE GOING HOME AT THIS TIME. ALL QUESTIONS ADDRESSED AT TIME OF DISCHARGE. Time of 1ST Reevaluation: 08:13 Reevaluation 1ST: Improved Patient Education/Counseling: Diagnosis, Treatment, Need For Follow Up Family Education/Counseling: Diagnosis, Treatment, Need For Follow Up Medical Screening: No EMC Exist At This Time SEPSIS Sepsis Screen Date sepsis recognized/suspect: Apr 28, 2025 Time Sepsis recognized/suspect: 712 Recent Procedure: No On Antibiotic Therapy: No Respiratory Rate >20: No Heart Rate >90: No Temp<36 C (96.8 F) or >38.3 C: No SBP <90 or MAP <65 mmHG: No New Acute Mental Status Change: No Is the patient on CPAP, BIPAP,: No Physician Orders Chest Xray 1 View (04/28/25 07:38) Vital Signs Date Time Temp Pulse Resp B/P (MAP) Pulse Ox O2 Delivery O2 Flow Rate FiO2 04/28/25 07:14 98.1 87 18 124/71 98 98.1 Medications Medications Dose Ordered Sig/Desmond Route Start Time Stop Time Status Last Admin Dose Admin Ceftriaxone Sodium 1,000 mg ONCE ONCE IM 04/28/25 07:45 04/28/25 07:46 DC 04/28/25 08:01 Departure 1 Departure Time of Disposition: 08:20 Impression: Primary Impression: Tonsillar exudate Disposition: HOME / SELF CARE / HOMELESS Condition: Stable Additional Instructions: FOLLOW-UP WITH PCP IN 1 TO 2 DAYS. TAKE MEDICATIONS PRESCRIBED. RETURN TO ED FOR ANY NEW OR WORSENING SYMPTOMS. e-Prescriptions Acetaminophen (Tylenol Extra Strength Fo) 500 Mg Tab 650 MG PO QID, #30 TAB Prov: ETHAN MELVIN 04/28/25 Azithromycin (Azithromycin) 500 Mg Tab 1 TAB PO DAILY, #5 TAB Prov: ETHAN MELVIN 04/28/25 Discharged With: Self Critical Care Note Critical Care Time?: No Stability Stability form required: No Heart Score Heart Score: Heart Score Response (Comments) Value History N/A 0 EKG N/A 0 Age N/A 0 Risk Factors N/A 0 Troponin N/A 0 Total 0 I personally scribed for ETHAN MELVIN ([email or web address]) on 04/28/25 at 07:49. Electronically submitted by Diogenes Kent ([email or web address]). I personally scribed for ETHAN MELVIN ([email or web address]) on 04/28/25 at 08:01. Electronically submitted by Diogenes Kent ([email or web address]). ETHAN MELVIN Apr 28, 2025 07:49
[2025-04-28] MEDS: cefTRIAXone SOD 1,000 MG VL IM ONE (08:01)
[2025-04-28] MEDS ORDERED: AZIT500T66 PO (08:11)
[2025-04-28] MEDS ORDERED: ACET-1304 PO (08:11)
--- NOTE | 2025-04-28 08:19 | DVH ---
CHEST RADIOGRAPH Indication:COUGH Technique: Single frontal view of the chest was obtained Comparison: none FINDINGS: Lines and Tubes: None Lungs: No focal consolidation. Pleura: No effusion. No pneumothorax. Cardiomediastinal contours: Unremarkable Bones: No acute osseous abnormality. IMPRESSION: No acute cardiopulmonary disease.
[2025-04-29] MEDS ORDERED: AMLO1TAB22 PO (16:33)
[2025-04-29] MEDS ORDERED: BUSP7.5T8 PO (16:33)
== END 2025-04-28 08:21 | disposition home or self-care (01) ==
LOC: ER 07:11
DX: J03.90 Acute tonsillitis, unspecified (principal); F12.90 Cannabis use, unspecified, uncomplicated; F10.90 Alcohol use, unspecified, uncomplicated; I10 Essential (primary) hypertension; E78.5 Hyperlipidemia, unspecified; Z79.899 Other long term (current) drug therapy; Z87.442 Personal history of urinary calculi; Z98.51 Tubal ligation status; Z88.6 Allergy status to analgesic agent; Z90.49 Acquired absence of other specified parts of digestive tract; Y90.9 Presence of alcohol in blood, level not specified
CPT/HCPCS: 71045; 96372; 99283; J0696

== ENCOUNTER 2025-04-29 10:30 | Inpatient (IN) | payer MEDICAID ==
[~2025-04-29] VITALS: Ht 154.9 cm; Wt 80.0 kg
[~2025-04-29 10:30] MED LIST changes: +ACET-1304 PO; +AZIT500T66 PO
--- NOTE | 2025-04-29 11:14 | ED.PDOC ---
History of Present Illness HPI Comments 39-year-old female BIBA with prior medical history of anemia, asthma, GERD, high lipids, kidney stones, seizures, headache: Surgical history of cholecystectomy, , tubal ligation and a chief complaint of palpitations. EMS reports that the patient was picked up from work for palpitations with chest pain and has a heart rate of 130-150 and a blood pressure of 142/86 on scene. Patient notes on having symptoms of headache and shortness a breath. Denies chills, fever, N/V/D, SOB. No other associated symptoms, modifiers, recent injuries or sick contacts present at this time. Time Seen by MD: 10:55 Primary Care Provider: EMANUEL Reviewed Notes: Nurses Notes, Medications, Allergies Allergies: Coded Allergies: Ibuprofen (Verified Allergy, Mild, STOMACH IRRITATION, 08/07/13) Cephalexin (Verified Allergy, Unknown, 04/29/25) Metoclopramide (Verified Allergy, Unknown, 02/16/14) Home Meds Active Scripts Acetaminophen (Tylenol Extra Strength Fo) 500 Mg Tab, 650 MG PO QID, #30 TAB Prov:ETHAN MELVIN 04/28/25 Azithromycin (Azithromycin) 500 Mg Tab, 1 TAB PO DAILY, #5 TAB Prov:ETHAN MELVIN 04/28/25 Hydrocodone-Acetaminophen (Hydrocodone Bitartrate/AC 5-325 mg) 1 Tab Tab, 1 TAB PO QIDPRN, #20 TAB Prov:DICK BARNES MD 05/26/24 Levofloxacin Hemihydrate (LEVAQUIN 500 MG) 500 Mg Tab, 500 MG PO DAILY for 7 Days, #7 TAB Prov:DICK BARNES MD 05/26/24 Cyclobenzaprine Hcl (Cyclobenzaprine Hcl) 5 Mg Tab, 1 TAB PO QPM PRN, #30 TAB Prov:MARY CABRERA 11/26/23 Azithromycin (Zithromax) 1 Gm Pow, 1 PACK PO ONCE, #1 PACK Prov:JULIETTE ADAMES MD 06/27/23 Tamsulosin Hcl (Flomax) 0.4 Mg Cap, 1 CAP PO DAILY for 6 Days, #6 CAP 0 Refills Prov:GIL HOPKINS 03/24/23 Tramadol Hcl (Tramadol Hcl) 50 Mg Tab, 50 MG PO QIDP, #10 TAB 0 Refills Prov:GIL HOPKINS 03/24/23 Cyclobenzaprine Hcl (Cyclobenzaprine Hcl) 5 Mg Tab, 1 TAB PO QPM PRN, #14 TAB 0 Refills Prov:GIL HOPKINS 03/24/23 Ferrous Sulfate (FERROUS SULFATE) 325 Mg Tb, 325 MG PO BID for 30 Days, #60 TAB Prov:AUGIE MARYA Q MICA PLATE LAYER HAND 02/08/23 Ondansetron Odt 4MG Tab (ZOFRAN PO) 4 Mg Tb, 1 TAB PO Q8HR, #20 TAB ODT TAB-DISSOLVE IN MOUTH, THEN SWALLOW as needed for nausea/vomiting Prov:WILLIAMS MARYALDA Q MICA PLATE LAYER HAND 02/08/23 Ibuprofen Micronized (MOTRIN TABLET) 600 Mg Tb, 1 TAB PO TID PRN, #20 TAB as needed for pain Prov:WILLIAMS MARYKARLIA Q MICA PLATE LAYER HAND 02/08/23 Ondansetron (Zofran) 4 Mg Tab, 1 TAB PO Q6HR, #20 TAB Prov:JULIETTE ADAMES MD 10/25/22 Ferrous Sulfate (Iron) 325 Mg Tab, 325 MG PO BID for 30 Days, #60 TAB 3 Refills Prov:PK CHAPMAN MD 02/07/22 Sucralfate (Carafate) 1 Gm/10 Ml Yesenia, 1 GM PO QID for 30 Days, #120 ML Prov:PK CHAPMAN MD 02/07/22 Pantoprazole Sodium Sesquihydr (Pantoprazole Sodium) 40 Mg Tab, 40 MG PO BID for 30 Days, #60 TAB 1 Refill Prov:PK CHAPMAN MD 02/07/22 Information Source: Patient, Emergency Med Personnel Mode of Arrival: EMS Severity: Moderate Timing: Hours Duration: Since onset, Hours Prehospital treatment: None Past Medical History PAST MEDICAL HISTORY: Anemia, Asthma, GERD, High Lipids, Kidney Stones, Seizures Past Medical History (Other): Headache Surgical History: Cholecystectomy, , Tubal Ligation 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: 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 Family History Family History: Reviewed,noncontributory to illness, Unknown, Family hx of HTN Social History Smoker: Non-Smoker Alcohol: Unknown Drugs: Unknown Lives In: Home Constitutional: denies: chills, diaphoresis, fatigue, fever, malaise, sweats, weakness, others EENTM: denies: blurred vision, double vision, ear bleeding, ear discharge, ear drainage, ear pain, ear ringing, eye pain, eye redness, hearing loss, mouth pain, mouth swelling, nasal discharge, nose bleeding, nose congestion, nose pain, photophobia, tearing, throat pain, throat swelling, voice changes, others Respiratory: reports: shortness of breath; denies: cough, hemoptysis, orthopnea, SOB at rest, SOB with excertion, stridor, wheezing, others Cardiovascular: reports: chest pain, palpitations; denies: dizzy spells, diaphoresis, Dyspnea on exertion, edema, irregular heart beat, left arm pain, lightheadedness, PND, syncope, others Gastrointestinal: denies: abdomen distended, abdominal pain, blood streaked bowels, constipated, diarrhea, dysphagia, difficulty swallowing, hematemesis, melena, nausea, poor appetite, poor fluid intake, rectal bleeding, rectal pain, vomiting, others Genitourinary: denies: abnormal vagina bleeding, burning, dyspareunia, dysuria, flank pain, frequency, hematuria, incontinence, pain, , vagina discharge, urgency, others Neurological: reports: headache; denies: dizziness, fainting, left sided numbness, left sided weakness, numbness, paresthesia, pre-existing deficit, right sided numbness, right sided weakness, seizure, speech problems, tingling, tremors, weakness, others Musculoskeletal: denies: back pain, gout, joint pain, joint swelling, muscle pain, muscle stiffness, neck pain, others Integumetry: denies: bruises, change in color, change in hair/nails, dryness, laceration, lesions, lumps, rash, wounds, others Allergic/Immunocompromised: denies: Difficulty Healing, Frequent Infections, Hives, Itching, others Hematologic/Lymphatic: denies: anemia, blood clots, easy bleeding, easy bruising, swollen glands, others Endocrine: denies: excessive hunger, excessive sweating, excessive thirst, excessive urination, flushing, intolerance to cold, intolerance to heat, unexplained weight gain, unexplained weight loss, others Psychiatric: denies: anxiety, bipolar disorder, depression, hopeless, panic disorder, schizophrenia, sleepless, suicidal, others All Other Systems: Reviewed and Negative Physical Exam General Appearance: Moderate Distress, Normal HEENT: Normal ENT Inspection, Pharynx Normal, TMs Normal Neck: Full Range of Motion, Non-Tender, Normal, Normal Inspection Respiratory: Chest Non-Tender, Lungs Clear, No Accessory Muscle Use, No Respiratory Distress, Normal Breath Sounds Cardiovascular: No Edema, No JVD, No Murmur, No Gallop, Normal Peripheral Pulses, Tachycardia Breast Exam: Deferred Gastrointestinal: No Organomegaly, Non Tender, No Pulsatile Mass, Normal Bowel Sounds, Soft Genitalia: Deferred Pelvic: Deferred Rectal: Deferred Extremities: No calf tenderness, Normal capillary refill, Normal inspection, Normal range of motion, Non-tender, No pedal edema Musculoskeletal : Apperance: Normal Neurologic: Alert, heating fixture tender II-XII nml as Tested, No Motor Deficits, Normal Affect, Normal Mood, No Sensory Deficits Cerebellar Function: NOT DONE Reflexes: NOT DONE Skin: Dry, Normal Color, Warm Peripheral Pulses: 3+ Radial (R), 3+ Radial (L) Lymphatic: No Adenopathy Was a procedure done? Was a procedure done?: No Differential Dx Considerations may include: Tachycardia Electrolyte imbalance X-Ray, Labs, Meds, VS Vital Signs Date Time Temp Pulse Resp B/P (MAP) Pulse Ox O2 Delivery O2 Flow Rate FiO2 04/29/25 11:59 98.8 103 24 113/70 (84) 100 98.8 04/29/25 11:59 103 24 100 Room Air* 0 21 04/29/25 11:46 98.0 130 16 132/81 98 98.0 04/29/25 10:37 105 Lab Test 04/29/25 11:49 Range/Units White Blood Count 6.5 4.4-10.8 10^3/uL Red Blood Count 4.19 4.0-5.20 10^6/uL Hemoglobin 9.5 L 12.2-16.2 g/dL Hematocrit 32.2 L 36.0-46.0 % Mean Corpuscular Volume 76.9 L 80.0-100.0 fL Mean Corpuscular Hemoglobin 22.6 L 28.0-32.0 pg Mean Corpuscular Hemoglobin Concent 29.4 L 32.0-36.0 g/dL Red Cell Distribution Width 26.2 H 11.8-14.3 % Platelet Count 371 140-450 10^3/uL Mean Platelet Volume 7.2 6.9-10.8 fL Neutrophils (%) (Auto) 67.3 37.0-80.0 % Lymphocytes (%) (Auto) 23.2 10.0-50.0 % Monocytes (%) (Auto) 7.9 0.0-12.0 % Eosinophils (%) (Auto) 0.8 0.0-7.0 % Basophils (%) (Auto) 0.8 0.0-2.0 % Neutrophils # (Auto) 4.4 1.6-8.6 10 ^3/uL Lymphocytes # (Auto) 1.5 0.4-5.4 10 ^3/uL Monocytes # (Auto) 0.5 0-1.3 10 ^3/uL Eosinophils # (Auto) 0.1 0-0.8 10 ^3/uL Basophils # (Auto) 0 0-0.2 10 ^3/uL Nucleated Red Blood Cells 0.1 % Sodium Level 138 136-145 mmol/L Potassium Level 3.6 3.5-5.1 mmol/L Chloride Level 102 98-107 mmol/L Carbon Dioxide Level 22 20-31 mmol/L Anion Gap 14 5-15 Blood Urea Nitrogen 7 L 9-23 mg/dL Creatinine 0.80 0.550-1.02 mg/dL Glomerular Filtration Rate Calc 97 >90 mL/min BUN/Creatinine Ratio 8.8 L 10.0-20.0 Serum Glucose 95 74-106 mg/dL Calcium Level 9.5 8.7-10.4 mg/dL Troponin I High Sensitivity 4 </=34 ng/L Current Medications Medications (Trade) Dose Ordered Sig/Desmond Route Start Time Stop Time Status Last Admin Lorazepam (Ativan Inj) 2 mg ONCE ONCE IV 04/29/25 11:30 04/29/25 11:31 DC 04/29/25 11:34 Levetiracetam 100 ml @ 400 mls/hr ONCE ONCE IV 04/29/25 11:30 04/29/25 11:44 DC 04/29/25 11:43 Sodium Chloride 1,000 ml @ 1,000 mls/hr Q1H ONCE IV 04/29/25 11:30 04/29/25 12:29 DC 04/29/25 11:33 Ondansetron HCl (Zofran) 4 mg ONCE ONCE IV 04/29/25 11:30 04/29/25 11:31 DC 04/29/25 11:34 Sodium Chloride 1,000 ml @ 150 mls/hr Q6H40M ONCE IV 04/29/25 11:45 04/29/25 18:24 04/29/25 11:44 Patient alert. Tachycardia. Vitals stable. Answering questions. Establish intravenous access. Was given fluids. History of thyroid disorder. She does get frequent tachycardia. Was given Ativan. EKG reviewed does show sinus tachycardia. WBC within normal limits. Anemia. Echocardiogram. Explained to the patient. Continue monitoring. Time of 1ST Reevaluation: 11:25 Reevaluation 1ST: Unchanged Patient Education/Counseling: Diagnosis, Treatment, Prognosis Family Education/Counseling: No Family Present SEPSIS Sepsis Screen Physician Orders Electrocardigram (04/29/25 11:19) Saline Lock (04/29/25 11:30) Urinalysis (04/29/25 11:37) Sodium Chloride 0.9% (04/29/25 11:45) Chest Xray 1 View (04/29/25 13:40) Vital Signs Date Time Temp Pulse Resp B/P (MAP) Pulse Ox O2 Delivery O2 Flow Rate FiO2 04/29/25 11:59 98.8 103 24 113/70 (84) 100 98.8 04/29/25 11:59 103 24 100 Room Air* 0 21 04/29/25 11:46 98.0 130 16 132/81 98 98.0 04/29/25 10:37 105 Laboratory Tests Test 04/29/25 11:49 White Blood Count 6.5 10^3/uL (4.4-10.8) Medications Medications Dose Ordered Sig/Desmond Route Start Time Stop Time Status Last Admin Dose Admin Levetiracetam 100 ml @ 400 mls/hr ONCE ONCE IV 04/29/25 11:30 04/29/25 11:44 DC 04/29/25 11:43 Lorazepam 2 mg ONCE ONCE IV 04/29/25 11:30 04/29/25 11:31 DC 04/29/25 11:34 Ondansetron HCl 4 mg ONCE ONCE IV 04/29/25 11:30 04/29/25 11:31 DC 04/29/25 11:34 Sodium Chloride 1,000 ml @ 150 mls/hr Q6H40M ONCE IV 04/29/25 11:45 04/29/25 18:24 04/29/25 11:44 Sodium Chloride 1,000 ml @ 1,000 mls/hr Q1H ONCE IV 04/29/25 11:30 04/29/25 12:29 DC 04/29/25 11:33 Departure 1 Departure Time of Disposition: 13:52 Impression: Primary Impression: Palpitation Additional Impression: Anemia Qualified Codes: D64.9 - Anemia, unspecified Disposition: ADMITTED INPATIENT Admit to: Med Surg Condition: Guarded Critical Care Note Critical Care Time?: Yes (90 min-critical care time only) Stability Stability form required: No Heart Score Heart Score: Heart Score Response (Comments) Value History Slightly Suspicious 0 EKG Normal 0 Age <45 0 Risk Factors 1 or 2 risk factors 1 Troponin Normal limit 0 Total 1 I personally scribed for KUMAR BAUTISTA MD ([email or web address]) on 04/29/25 at 11:14. Electronically submitted by Harry Butler ([email or web address]). KUMAR BAUTISTA MD Apr 29, 2025 11:14
[2025-04-29] MEDS: SODIUM CHLORIDE 0.9% 1,000 ML IV ONE ×3 (11:33→11:44)
[2025-04-29] MEDS: ONDANSETRON HCL 4 MG/2 ML VIAL IV ONE (11:34)
[2025-04-29] MEDS: LORazepam 2MG/ML-1ML VIAL IV ONE (11:34)
[2025-04-29] MEDS: ONDANSETRON HCL 4 MG/2 ML VIAL ONE (11:43)
[2025-04-29] MEDS: LORazepam 2MG/ML-1ML VIAL ONE (11:43)
[2025-04-29] MEDS: levETIRAcetam 1000 mg/100ml 100 ML IV ONE (11:43)
[2025-04-29 11:59] VITALS: PULSE 103; RESP 24; O2SAT 100
[2025-04-29 12:16] LABS: Hematocrit 32.2 % (36.0-46.0); Hemoglobin 9.5 g/dL (12.2-16.2); Mean Corpuscular Hemoglobin 22.6 pg (28.0-32.0); Mean Corpuscular Volume 76.9 fL (80.0-100.0); Nucleated Red Blood Cells % 0.1 %
[2025-04-29 12:19] LABS: Anion Gap 14 (5-15); Carbon Dioxide 22 mmol/L (20-31); Chloride 102 mmol/L (98-107); Potassium 3.6 mmol/L (3.5-5.1); Sodium 138 mmol/L (136-145)
[2025-04-29 12:20] LABS: Calcium 9.5 mg/dL (8.7-10.4)
[2025-04-29 12:25] LABS: BUN/Creatinine Ratio 8.8 (10.0-20.0); Blood Urea Nitrogen 7 mg/dL (9-23); Glucose 95 mg/dL (74-106)
--- NOTE | 2025-04-29 14:12 | DVH ---
CHEST RADIOGRAPH Indication: palpitations Technique: Single frontal view of the chest was obtained COMPARISON: XY CHEST XRAY 1 VIEW on DOS: 04/28/25, XY CHEST PORTABLE on DOS: 01/25/25, XY CHEST TWO VIE WS ROUTINE on DOS: 06/27/23, XY CHEST PORTABLE on DOS: 02/07/23, XY CHEST PORTABLE on DOS: 11/28/22 FINDINGS: Lines and Tubes: None Lungs: Clear Pleura: No effusion. No pneumothorax. Cardiomediastinal contours: Unremarkable Bones: Unremarkable IMPRESSION: No acute disease.
[2025-04-29] MEDS: ACETAMINOPHEN 500 MG TAB or CAP PO ONE (16:13)
[2025-04-29] MEDS ORDERED: MORPHINE SULFATE 4 MG/ML SYR/VIAL IV PRN (16:30)
[2025-04-29] MEDS ORDERED: NITROGLYCERIN 0.4 MG SL TAB SL PRN ×2 (16:30)
[2025-04-29] MEDS ORDERED: AMLO1TAB22 PO (16:33)
[2025-04-29] MEDS ORDERED: BUSP7.5T8 PO (16:33)
[2025-04-29] MEDS ORDERED: ALBUTEROL SULF 2.5 MG/0.5ML(0.5%) NEB SOLN NEB PRN (17:00)
[2025-04-29] MEDS ORDERED: IPRATROPIUM BROM 0.5 MG/2.5ML INH SOL NEB PRN (17:00)
--- NOTE | 2025-04-29 17:00 | DVHHP2 ---
History of Present Illness Reason for Visit: Chest pain History of Present Illness Ana James is a 39-year-old female with past medical history of anemia, asthma, GERD, hyperlipidemia, kidney stones, seizures, mitral valve prolapse, palpitations, cholecystectomy, , tubal ligation, uterine lesion, anxiety and endometriosis who presents to the ED with chest pain that started today while she has a work. Patient reports that the pain is 7/10 pressure-like and constant. She states that it radiates back to her shoulders and lower back. Patient reports that she has had this problem before but not to this extent. She states that turning to her left side helps with relief and also going into the walk-in freezer when she is at work. 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 Patient also reports that she is compliant with her medications. Patient's Diogenes at the bedside. Patient states that she has not seen a supervisor [employer] in the last time she saw her PCP was 2 weeks ago. Patient states that she was here yesterday and was given antibiotics for oral thrush. Patient also reports that she takes Keppra 1000 mg b.i.d. She also endorses that she fell a month ago and hit the left front of her forehead and stated that they placed Dermabond on. Patient denies any fever or chills, shortness of breath, recent travels, recent ingestion of spoiled food, nausea, vomiting, diarrhea, abdominal pain, lightheadedness, weakness, dizziness, or urinary symptoms. Patient reports that she drinks half a bottle of vodka every day and uses marijuana. 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 Mom with diabetes hypertension and asthma.) Smoke: No ALCOHOL: heavy Drugs: Marijuana Lives: with Family Domestic Violence: Neg Review of Systems Cardiovascular: Chest Pain Allergies: Coded Allergies: Ibuprofen (Verified Allergy, Mild, STOMACH IRRITATION, 08/07/13) Cephalexin (Verified Allergy, Unknown, 04/29/25) Metoclopramide (Verified Allergy, Unknown, 02/16/14) Exam Vital Signs Vital Signs Date Time Temp Pulse Resp B/P (MAP) Pulse Ox O2 Delivery O2 Flow Rate FiO2 04/29/25 15:49 97.9 96 20 111/71 (84) 100 97.9 04/29/25 11:59 Room Air* 0 21 General Appearance: Alert, Oriented X3, Cooperative, No acute distress HEENT: Atraumatic, PERRLA, EOMI, Mucous membr. moist/pink Respiratory: Clear to auscultation, Normal air movement Cardiovascular: Normal S1, Normal S2, No murmurs Abdominal: Normal bowel sounds, Soft, No tenderness, No hepatospenomegaly, No masses Extremities: No clubbing, No cyanosis, No edema, Normal pulses, No tenderness/swelling Skin: No rashes, No breakdown, No significant lesion Neuro: Normal speech, Strength at 5/5 X4 ext, Normal tone, Sensation intact Psych/Mental Status: Mental status NL, Mood NL Labs/Xrays Labs Test 04/29/25 11:49 Range/Units White Blood Count 6.5 4.4-10.8 10^3/uL Red Blood Count 4.19 4.0-5.20 10^6/uL Hemoglobin 9.5 L 12.2-16.2 g/dL Hematocrit 32.2 L 36.0-46.0 % Mean Corpuscular Volume 76.9 L 80.0-100.0 fL Mean Corpuscular Hemoglobin 22.6 L 28.0-32.0 pg Mean Corpuscular Hemoglobin Concent 29.4 L 32.0-36.0 g/dL Red Cell Distribution Width 26.2 H 11.8-14.3 % Platelet Count 371 140-450 10^3/uL Mean Platelet Volume 7.2 6.9-10.8 fL Neutrophils (%) (Auto) 67.3 37.0-80.0 % Lymphocytes (%) (Auto) 23.2 10.0-50.0 % Monocytes (%) (Auto) 7.9 0.0-12.0 % Eosinophils (%) (Auto) 0.8 0.0-7.0 % Basophils (%) (Auto) 0.8 0.0-2.0 % Neutrophils # (Auto) 4.4 1.6-8.6 10 ^3/uL Lymphocytes # (Auto) 1.5 0.4-5.4 10 ^3/uL Monocytes # (Auto) 0.5 0-1.3 10 ^3/uL Eosinophils # (Auto) 0.1 0-0.8 10 ^3/uL Basophils # (Auto) 0 0-0.2 10 ^3/uL Nucleated Red Blood Cells 0.1 % Sodium Level 138 136-145 mmol/L Potassium Level 3.6 3.5-5.1 mmol/L Chloride Level 102 98-107 mmol/L Carbon Dioxide Level 22 20-31 mmol/L Anion Gap 14 5-15 Blood Urea Nitrogen 7 L 9-23 mg/dL Creatinine 0.80 0.550-1.02 mg/dL Glomerular Filtration Rate Calc 97 >90 mL/min BUN/Creatinine Ratio 8.8 L 10.0-20.0 Serum Glucose 95 74-106 mg/dL Calcium Level 9.5 8.7-10.4 mg/dL Troponin I High Sensitivity 4 </=34 ng/L CHEST RADIOGRAPH Indication: palpitations Technique: Single frontal view of the chest was obtained COMPARISON: XY CHEST XRAY 1 VIEW on DOS: 04/28/25, XY CHEST PORTABLE on DOS: 01/25/25, XY CHEST TWO VIEWS ROUTINE on DOS: 06/27/23, XY CHEST PORTABLE on DOS: 02/07/23, XY CHEST PORTABLE on DOS: 11/28/22 FINDINGS: Lines and Tubes: None Lungs: Clear Pleura: No effusion. No pneumothorax. Cardiomediastinal contours: Unremarkable Bones: Unremarkable IMPRESSION: No acute disease. SEPSIS Sepsis Screen Date sepsis recognized/suspect: Apr 29, 2025 Time Sepsis recognized/suspect: 1046 Recent Procedure: No On Antibiotic Therapy: No Respiratory Rate >20: No Heart Rate >90: Yes Temp<36 C (96.8 F) or >38.3 C: No SBP <90 or MAP <65 mmHG: No New Acute Mental Status Change: No Is the patient on CPAP, BIPAP,: No Physician Orders Electrocardigram (04/29/25 11:19) Saline Lock (04/29/25 11:30) Urinalysis (04/29/25 11:37) Sodium Chloride 0.9% (04/29/25 11:45) Chest Xray 1 View (04/29/25 13:40) Admit (04/29/25 16:18) Code Status (04/29/25 16:18) Vital Signs .PER UNIT PROTOCOL (04/29/25 16:18) Digital Account Supervisor (04/29/25 16:18) Cardiac Diet-2gna,Lofat,Lochol (04/29/25 Dinner) Aspirin Tablet (04/30/25 10:00) Atorvastatin (Lipitor) (04/29/25 22:00) Morphine Sulfate Injection (04/29/25 16:30) Acetaminophen Tab Or Cap (Tylenol Tablet (04/29/25 16:30) Complete Blood Count (04/30/25 04:00) Basic Metabolic Panel (04/30/25 04:00) Magnesium (04/30/25 04:00) Lipid Panel (04/30/25 04:00) Echo 2d Mode Cardiac Dop (04/29/25 16:18) Nitroglycerin Sublingual (Ntrostat Subli (04/29/25 16:30) Ondansetron Hcl (Zofran) (04/29/25 16:30) Electrocardigram (04/29/25 16:18) Troponin-I Hs (04/30/25 04:00) Cardiac Rehabilitation - Outpa (04/29/25 ) Nitroglycerin Sublingual (Ntrostat Subli (04/29/25 16:30) Morphine Sulfate Injection (04/29/25 16:30) Stat Ekg For Chest Pain (04/29/25 16:18) Notify Of Changes From Base (04/29/25 16:18) Certified Dental Assistant For 24 Hours (04/29/25 16:18) Emergency Dysrhythmia Protocol (04/29/25 16:18) Rhythm Strips Once Every Shift (04/29/25 16:18) Oxygen By Nasal Cannula (04/29/25 16:18) Thyroid Stimulating Hormone (04/29/25 16:18) Hemoglobin A1c (04/29/25 16:18) Drug Screen (04/29/25 16:18) Pantoprazole Tablet (Protonix Tablet) (04/29/25 22:00) Sucralfate Susp (Carafate Susp) (04/29/25 18:00) Tamsulosin Hydrochloride (Flomax) (04/30/25 10:00) (Nf) Azithromycin (04/30/25 10:00) (Nf) Ferrous Sulfate (Iron) (04/29/25 22:00) Amlodipine Tablet (Norvasc Tablet) (04/29/25 22:00) (Nf) Buspirone Hcl (04/29/25 22:00) Levetiracetam Tablet (Keppra Tablet) (04/29/25 22:00) Vital Signs Date Time Temp Pulse Resp B/P (MAP) Pulse Ox O2 Delivery O2 Flow Rate FiO2 04/29/25 15:49 97.9 96 20 111/71 (84) 100 97.9 04/29/25 11:59 98.8 103 24 113/70 (84) 100 98.8 04/29/25 11:59 103 24 100 Room Air* 0 21 04/29/25 11:46 98.0 130 16 132/81 98 98.0 04/29/25 10:37 105 Laboratory Tests Test 04/29/25 11:49 White Blood Count 6.5 10^3/uL (4.4-10.8) Medications Medications Dose Ordered Sig/Desmond Route Start Time Stop Time Status Last Admin Dose Admin Acetaminophen 1,000 mg ONCE ONCE PO 04/29/25 16:00 04/29/25 16:01 DC 04/29/25 16:13 1,000 MG Levetiracetam 100 ml @ 400 mls/hr ONCE ONCE IV 04/29/25 11:30 04/29/25 11:44 DC 04/29/25 11:43 400 MLS/HR Lorazepam 2 mg ONCE ONCE IV 04/29/25 11:30 04/29/25 11:31 DC 04/29/25 11:34 2 MG Ondansetron HCl 4 mg ONCE ONCE IV 04/29/25 11:30 04/29/25 11:31 DC 04/29/25 11:34 4 MG Sodium Chloride 1,000 ml @ 150 mls/hr Q6H40M ONCE IV 04/29/25 11:45 04/29/25 18:24 04/29/25 11:44 150 MLS/HR Sodium Chloride 1,000 ml @ 1,000 mls/hr Q1H ONCE IV 04/29/25 11:30 04/29/25 12:29 DC 04/29/25 11:33 1,000 MLS/HR Assessment/Plan Assessment/Plan Assessment Chest pain Alcohol abuse Marijuana use Microcytic Anemia History of asthma History of GERD History of hyperlipidemia History of liver nephrolithiasis History of seizures History of mitral valve prolapse History of palpitations History of cholecystectomy History of History of tubal ligation History of uterine lesion History of anxiety History of endometriosis Plan Admit to tele Antiemetics Pain management EKG UA Troponin noted TSH Lipid panel A1c UDS Echo ordered Chest x-ray Alcohol level Patient started on nystatin for oral thrush CIWA Multivitamin Folic acid Thiamine Diet Home medications reconciled DVT prophylaxis-not indicated patient ambulating PUD prophylaxis-PPIs Discussed plan of care with patient, patient's spouse, and nurse Cardiology consult Counseled patient on cessation of alcohol use and marijuana use [id number] Advanced care planning discussed 80645 Behavior change smoking greater than 10 minutes about use of other options also gave option of nicotine patch 90938 Preventive counseling healthy eating habits, physical activity, and regular checkups Plan discussed with: Patient, Spouse My Orders Orders - SENG COTTON PYTHON 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 DEVELOPER Procedure Category Date Status Time Chest Xray 1 View XY 04/29/25 Resulted 13:40 Admit ADMIT 04/29/25 Transmitted 16:18 Code Status CODE 04/29/25 Transmitted 16:18 Vital Signs REYNOLD 04/29/25 In Process 16:18 Digital Account Supervisor REYNOLD 04/29/25 In Process 16:18 Cardiac DIET 04/29/25 Transmitted Diet-2gna,Lofat,Lochol Dinner Aspirin Tablet PHA 04/30/25 Logged 10:00 Atorvastatin (Lipitor) PHA 04/29/25 Logged 22:00 Morphine Sulfate PHA 04/29/25 Logged Injection 16:30 Acetaminophen Tab Or PHA 04/29/25 Logged Cap (Tylenol Tablet 16:30 Complete Blood Count LAB 04/30/25 Verified 04:00 Basic Metabolic Panel LAB 04/30/25 Verified 04:00 Magnesium LAB 04/30/25 Verified 04:00 Lipid Panel LAB 04/30/25 Verified 04:00 Echo 2d Mode Cardiac US 04/29/25 Logged DOP 16:18 Nitroglycerin PHA 04/29/25 Logged Sublingual (Ntrostat 16:30 Ondansetron Hcl PHA 04/29/25 Logged (Zofran) 16:30 Electrocardigram EKG 04/29/25 Logged 16:18 Troponin-I Hs LAB 04/30/25 Verified 04:00 Cardiac REYNOLD 04/29/25 In Process Rehabilitation - Outpa Nitroglycerin PHA 04/29/25 Logged Sublingual (Ntrostat 16:30 Morphine Sulfate PHA 04/29/25 Logged Injection 16:30 Stat Ekg For Chest [facility] 04/29/25 In Process Pain 16:18 Notify Of Changes [facility] 04/29/25 In Process From Base 16:18 Certified Dental Assistant For [facility] 04/29/25 In Process 24 Hours 16:18 Emergency Dysrhythmia [facility] 04/29/25 In Process Protocol 16:18 Rhythm Strips Once [facility] 04/29/25 In Process Every Shift 16:18 Oxygen By Nasal RT 04/29/25 Transmitted Cannula 16:18 Thyroid Stimulating LAB 04/29/25 Logged Hormone 16:18 Hemoglobin A1c LAB 04/29/25 Logged 16:18 Drug Screen LAB 04/29/25 Logged 16:18 Pantoprazole Tablet PHA 04/29/25 Logged (Protonix Tablet) 22:00 Sucralfate Susp PHA 04/29/25 Logged (Carafate Susp) 18:00 Tamsulosin PHA 04/30/25 Logged Hydrochloride (Flomax) 10:00 (Nf) Azithromycin PHA 04/30/25 Logged 10:00 (Nf) Ferrous Sulfate PHA 04/29/25 Logged (Iron) 22:00 Amlodipine Tablet PHA 04/29/25 Logged (Norvasc Tablet) 22:00 (Nf) Buspirone Hcl PHA 04/29/25 Logged 22:00 Levetiracetam Tablet PHA 04/29/25 Verified (Keppra Tablet) 22:00 Date of Service: Apr 29, 2025 Billing Provider: SENG COTTON Common Visit Codes: 48004-MYJNOUI INP/OBS CARE (HIGH) Secondary Visit Codes: 19306-[id number] COUNSELING IND, 62915-WHTWQ CHNG SMOKING >10MIN, 23387-[id number] CARE PLAN 30 MINUTES SENG COTTON Apr 29, 2025 17:00
[2025-04-29] MEDS: FOLIC ACID 1 MG TAB PO SCH (18:01)
[2025-04-29] MEDS: MULTIPLE VITAMIN TAB PO SCH (18:01)
[2025-04-29] MEDS: NYSTATIN (MOUTH-THROAT) 500,000 UNITS/5 ML SUSP MT SCH (18:01)
[2025-04-29] MEDS: THIAMINE HCL 100 MG TAB PO SCH (18:01)
[2025-04-29] MEDS: SUCRALFATE 1 GM/10 ML ORAL SUSP PO SCH (18:01)
[2025-04-29 18:03] VITALS: PULSE 103; RESP 16; O2SAT 97
[2025-04-29 19:30] VITALS: PULSE 93; RESP 19; O2SAT 96
[2025-04-29 20:04] VITALS: BP 111/71; PULSE 103; RESP 16; TEMP 97.9; O2SAT 97
[2025-04-29 20:24] LABS: Cannabinoid Screen, Urine Pos (NEGATIVE)
[2025-04-29 20:26] LABS: Amphetamine Screen, Urine Neg (NEGATIVE); Barbiturate Scree,Urine Neg (NEGATIVE); Benzodiazephine Screen, Urine Neg (NEGATIVE); Cocaine Screen, Urine Neg (NEGATIVE); Opiate Scree,Urine Neg (NEGATIVE); Phencyclidine Screen, Urine Neg (NEGATIVE); Urine Protein, UAD TRACE (Negative)
[2025-04-29] MEDS: ACETAMINOPHEN 500 MG TAB or CAP PO PRN (20:45)
[2025-04-29] MEDS: ONDANSETRON HCL 4 MG/2 ML VIAL IV PRN (20:45)
[2025-04-29] MEDS: levETIRAcetam 500 MG TAB PO SCH (21:54)
[2025-04-29] MEDS: ATORVASTATIN 20 MG TAB PO SCH (21:54)
[2025-04-29] MEDS: PANTOPRAZOLE 40 MG TAB PO SCH (21:55)
[2025-04-29] MEDS: FERROUS SULFATE 325mg EC TAB PO SCH (21:55)
[2025-04-30] MEDS: MORPHINE SULFATE INJ 2 MG/ml SYRG IV PRN (03:43)
[2025-04-30 05:40] VITALS: O2SAT 98
[2025-04-30 06:34] LABS: Hemoglobin 9.5 g/dL (12.2-16.2); Mean Corpuscular Volume 75.4 fL (80.0-100.0)
[2025-04-30 06:36] LABS: Anion Gap 10 (5-15); Carbon Dioxide 23 mmol/L (20-31); Chloride 104 mmol/L (98-107); Sodium 137 mmol/L (136-145)
[2025-04-30 06:37] LABS: Hematocrit 31.6 % (36.0-46.0); Mean Corpuscular Hemoglobin 22.6 pg (28.0-32.0); Nucleated Red Blood Cells % 0.2 %
[2025-04-30 06:41] LABS: Calcium 8.5 mg/dL (8.7-10.4); Glucose 91 mg/dL (74-106); Potassium 3.1 mmol/L (3.5-5.1)
[2025-04-30 06:42] LABS: BUN/Creatinine Ratio 11.9 (10.0-20.0); Magnesium 1.9 mg/dL (1.6-2.6); Triglycerides 81 mg/dL (< 150)
[2025-04-30 06:43] LABS: Blood Urea Nitrogen 8 mg/dL (9-23)
[2025-04-30 06:44] LABS: Cholesterol 196 mg/dL (< 200)
[2025-04-30 06:45] LABS: HDL Cholesterol 115 mg/dL (40-59)
[2025-04-30 08:01] VITALS: BP 113/53; PULSE 60; RESP 15; TEMP 98.6; O2SAT 94
[2025-04-30] MEDS ORDERED: AZITHROMYCIN 250 MG TAB PO SCH (10:00)
[2025-04-30] MEDS ORDERED: TAMSULOSIN HYDROCHLORIDE 0.4 MG CAP PO SCH (10:00)
--- NOTE | 2025-05-03 08:16 | ECG ---
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
== END 2025-04-30 08:40 | disposition left against medical advice (07) | DRG 203 ==
LOC: ER 10:30 → EDBD 10:30 → OVERFLOW 16:18
PROVIDERS: ADMIT Internal Medicine; ATTEND Internal Medicine
DX: R07.89 Other chest pain (principal); B37.0 Candidal stomatitis; D50.9 Iron deficiency anemia, unspecified; F10.10 Alcohol abuse, uncomplicated; E78.5 Hyperlipidemia, unspecified; F12.90 Cannabis use, unspecified, uncomplicated; J45.909 Unspecified asthma, uncomplicated; F41.9 Anxiety disorder, unspecified; K21.9 Gastro-esophageal reflux disease without esophagitis; Z53.29 Procedure and treatment not carried out because of patient's decision for other reasons; Z98.891 History of uterine scar from previous surgery; Z98.51 Tubal ligation status; Z90.49 Acquired absence of other specified parts of digestive tract; Z87.442 Personal history of urinary calculi; Z83.3 Family history of diabetes mellitus; Z82.5 Family history of asthma and other chronic lower respiratory diseases; Z82.49 Family history of ischemic heart disease and other diseases of the circulatory system; Z88.6 Allergy status to analgesic agent; Z88.1 Allergy status to other antibiotic agents
CPT/HCPCS: 36415; 71045; 80048; 80061; 80307; 80320; 81001; 83036; 83735; 84443; 84484; 85025; 93005; 96361; 96374; 99291; G0378; J2405

== ENCOUNTER 2025-06-14 18:13 | Emergency (ER) | payer MEDICAID ==
[~2025-06-14] VITALS: Ht 167.6 cm; Wt 80.3 kg
[~2025-06-14 18:13] MED LIST changes: +AMLO1TAB22 PO; -AZIT500T66 PO; +BUSP7.5T8 PO
[2025-06-14] MEDS: SODIUM CHLORIDE 0.9% 1,000 ML IV ONE (18:45)
--- NOTE | 2025-06-14 18:50 | ED.PDOC ---
HPI (NEURO) HPI Comments HPI: Poor Historian. 40-year-old female presents to emergency department by ambulance for witnessed seizure lasted for 1 minute. Patient states she gets at least three seizures a day and that is normal for her. She was seen recently by her neurologist three weeks ago. Patient is on Keppra 1 g b.i.d.. She states compliance with the medications. Today when she had a seizure she with a at a friend's house drinking alcohol but denies any fall or trauma or injury. She was assisted to the ground. Patient states that her seizures are usually triggered by stress or decreased food intake. Patient is also mentioned that she has been having some chest pressure constant for the last two weeks. There was no reported trauma or incontinence or oral trauma. Per EMS, when they arrived to the scene she was already back to her baseline not postictal. Past Medical History: Schizophrenia, seizure disorder, hyperkalemia, anemia Past Surgical History: Cholecystectomy, , and tubal ligation REVIEW OF SYSTEMS: CONSTITUTIONAL: Denies acute: fever, diaphoresis, chills, HEAD: Denies acute: headache, photophobia Eyes: Denies acute: Double vision, vision loss, eye pain, eye discharge. EARS: Denies acute: tinnitus, hearing loss, ear discharge, ear pain, THROAT: Denies acute: sore throat, swelling, difficulty swallowing , pain with swallowing, change in voice. NECK: Denies acute: neck pain, neck swelling, stiff neck. HEART: Denies acute : palpitations, LUNGS: Denies acute: SOB, wheezing, cough, hemoptysis ABDOMEN: Denies acute: abdominal pain, Nausea, Vomiting, diarrhea, melena , hematemesis, hematochezia SKIN: Denies acute: rash, redness, lesions, itchiness. EXTREMITIES: Denies acute: calf pain, numbness, tingling, weakness, denies pain in extremity. Denies acute: Low back pain. Neuro: Denies acute: focal neurological deficit, motor or sensory focal neurological deficit, loss of bowel or bladder function, cauda equina like symptoms. : Denies acute: dysuria, hematuria, flank pain, increase in urinary frequency. PSYCH: Denies acute: hallucination, suicidal ideation, homicidal ideation. FEMALE: Denies acute: abnormal vaginal bleeding, foul odor, unusual discharge. PHYSICAL EXAM: General: ----mild----acute distress, awake and alert. Appears under the influence of alcohol. Head: normocephalic, atraumatic. Neck: supple, trachea is midline, no swelling. Throat: Normal phonation. No oral trauma. Eyes:, no erythema, no purulent discharge, no proptosis, no icterus. Heart: regular rate, regular rhythm, no significant murmur appreciated. Lungs: no apparent respiratory distress, Able to speak in full sentences. No wheezing, no rhonchi, no crackles. No stridors Clear to auscultation bilaterally. Abdomen: non tender to palpation, non distended, soft, no guarding, no rebound, + bowel sounds. Neuro: Awake, Alert, oriented to name, self, situation, follows commands GCS=15. Speech is normal. Skin: no petechia, no purpura, no cyanosis, non-pale, not jaundice. Lower extremities: --no - Pitting edema no deformity, no focal swelling, no calf TTP. Makes eye contact. moves all four extremities. Face: no apparent facial droop. PERRLA, EOM-I CN 2-12 are grossly intact, No nystagmus. No nuchal rigidity, Kernig's sign, Brudzinski's sign, no meningeal signs. ED COURSE: DISCLAIMER: This medical document was created using an electronic medical record system with voice recognition software and computerized dictation system. Although this document has been carefully reviewed, there might still be some phonetic and typographical errors. Occasional wrong-word or "sound-alike" substitutions may have occurred due to the inherent limitations of voice recognition software. These areas are purely typographical due to imperfections of the software pro grams and do not reflect any compromise in the patient's medical care. Please read the chart carefully and recognize, using context, where these substitutions have occurred. Chief Complaint: Seizure Time Seen by MD: 18:30 Primary Care Provider: EMANUEL Reviewed Notes: Allergies Information Source: Patient Mode of Arrival: EMS Past Medical History PAST MEDICAL HISTORY: Anemia, Asthma, GERD, High Lipids, Kidney Stones, Seizures Surgical History: Cholecystectomy, , Tubal Ligation [employer] History: 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 Family History Family History: Reviewed,noncontributory to illness, Unknown, Family hx of HTN Social History Smoker: Non-Smoker Alcohol: Unknown Drugs: Unknown Lives In: Home EKG EKG : Pulse Rate (adult): 96 [place]: Normal Cardiac Rhythm: NSR Block: None Hypertrophy: None ST: Normal Comments no abnormalities; otherwise unremarkable Was a procedure done? Was a procedure done?: No Differential Diagnosis (SZ) Seizure: Other (SEIZUREDDX include not limited to CVA, cerebellar ischemia/infarct, carotid stenosis, vertebral/carotid artery dissection,, vertebrobasillary insufficiency, Intracranial mass/infection/bleed, encephalopathy, elctrolyte abnormality, thyroid disease, multiple sclerosis, hypoglycemia, drug toxicity, cardiac arrhythmia, sub-theraputic anti-convulsion medications, known seizure disorder, pseudo-seizure.) X-Ray, Labs, Meds, VS Vital Signs Date Time Temp Pulse Resp B/P (MAP) Pulse Ox O2 Delivery O2 Flow Rate FiO2 06/15/25 02:05 98 17 140/87 (104) 95 06/14/25 23:00 92 20 101/59 (73) 93 06/14/25 21:00 98 17 110/68 (82) 92 06/14/25 20:36 96 06/14/25 20:11 96 06/14/25 19:23 98 26 95 Room Air* 0 21 06/14/25 19:23 98.1 98 26 139/84 (102) 95 98.1 06/14/25 18:44 98.3 121 16 149/86 (107) 95 98.3 06/14/25 18:20 98.1 108 18 145/97 98 98.1 Lab Test 06/14/25 21:39 06/14/25 19:51 06/14/25 18:53 06/14/25 18:48 Range/Units Lactic Acid Level 3.1 *H 2.8 *H 0.4-2.0 mmol/L Troponin I High Sensitivity < 3 L < 3 L < 3 L </=34 ng/L White Blood Count 10.4 4.4-10.8 10^3/uL Red Blood Count 4.33 4.0-5.20 10^6/uL Hemoglobin 9.6 L 12.2-16.2 g/dL Hematocrit 32.6 L 36.0-46.0 % Mean Corpuscular Volume 75.4 L 80.0-100.0 fL Mean Corpuscular Hemoglobin 22.1 L 28.0-32.0 pg Mean Corpuscular Hemoglobin Concent 29.4 L 32.0-36.0 g/dL Red Cell Distribution Width 24.7 H 11.8-14.3 % Platelet Count 392 140-450 10^3/uL Mean Platelet Volume 6.7 L 6.9-10.8 fL Neutrophils (%) (Auto) 71.8 37.0-80.0 % Lymphocytes (%) (Auto) 20.2 10.0-50.0 % Monocytes (%) (Auto) 5.6 0.0-12.0 % Eosinophils (%) (Auto) 1.8 0.0-7.0 % Basophils (%) (Auto) 0.6 0.0-2.0 % Neutrophils # (Auto) 7.5 1.6-8.6 10 ^3/uL Lymphocytes # (Auto) 2.1 0.4-5.4 10 ^3/uL Monocytes # (Auto) 0.6 0-1.3 10 ^3/uL Eosinophils # (Auto) 0.2 0-0.8 10 ^3/uL Basophils # (Auto) 0.1 0-0.2 10 ^3/uL Nucleated Red Blood Cells 0.1 % Sodium Level 140 136-145 mmol/L Potassium Level 3.9 3.5-5.1 mmol/L Chloride Level 102 98-107 mmol/L Carbon Dioxide Level 23 20-31 mmol/L Anion Gap 15 5-15 Blood Urea Nitrogen 8 L 9-23 mg/dL Creatinine 0.80 0.550-1.02 mg/dL Glomerular Filtration Rate Calc 96 >90 mL/min BUN/Creatinine Ratio 10.0 10.0-20.0 Serum Glucose 114 H 74-106 mg/dL Calcium Level 9.0 8.7-10.4 mg/dL Magnesium Level 2.2 1.6-2.6 mg/dL Total Bilirubin 0.4 0.2-1.0 mg/dL Aspartate Amino Transferase (AST) 81 H 13-40 U/L Alanine Aminotransferase (ALT) 56 H 7-40 U/L Alkaline Phosphatase 87 46-116 U/L Total Protein 8.3 H 5.7-8.2 g/dL Albumin 4.9 H 3.2-4.8 g/dL Levetiracetam Level Pending Plasma/Serum Blood Alcohol 306.6 H <10 mg/dL Urine Opiates Screen Neg NEGATIVE Urine Fentanyl Screen Neg NEGATIVE Urine Barbiturates Screen Neg NEGATIVE Urine Phencyclidine Screen Neg NEGATIVE Urine Amphetamines Screen Neg NEGATIVE Urine Benzodiazepines Screen Neg NEGATIVE Urine Cocaine Screen Neg NEGATIVE Urine Cannabinoids Screen Pos NEGATIVE Current Medications Medications (Trade) Dose Ordered Sig/Desmond Route Start Time Stop Time Status Last Admin Sodium Chloride 1,000 ml @ 1,000 mls/hr Q1H ONCE IV 06/14/25 18:45 06/14/25 19:44 DC 06/14/25 18:45 Levetiracetam 100 ml @ 400 mls/hr ONCE ONCE IV 06/14/25 18:45 06/14/25 18:59 DC 06/14/25 19:11 Sodium Chloride 2,000 ml @ 1,000 mls/hr Q2H ONCE IV 06/14/25 20:00 06/14/25 21:59 DC 06/14/25 20:00 Lorazepam (Ativan Inj) 2 mg ONCE ONCE IV 06/14/25 21:00 06/14/25 21:01 DC 06/14/25 21:00 Ceftriaxone Sodium 50 ml @ 100 mls/hr ONCE ONCE IV 06/14/25 22:45 06/14/25 23:14 DC 06/14/25 22:45 Levetiracetam 100 ml @ 400 mls/hr ONCE ONCE IV 06/14/25 22:45 06/14/25 23:11 DC 06/14/25 22:45 [place] [id number] Ph: [phone] DIAGNOSTIC IMAGING Diagnostic Imaging Report : [id number] Signed PATIENT: DEEP MANDUJANO ACCT: [id number] UNIT: [id number] : 1985 LOC: ER ROOM / BED: / AGE / SEX: 40 / F ADM STATUS: REG ER SERVICE 183 ORDERING PHYSICIAN: COURTNEY SKELTON DO PROCEDURE(s): CXRP - CHEST PORTABLE REASON: cp ORDER NUMBER(s): [id number], ACCESSION NUMBER(s): [id number] CHEST RADIOGRAPH Indication: cp Technique: Single frontal view of the chest was obtained Comparison: XY CHEST XRAY 1 VIEW on DOS: 04/29/25, XY CHEST XRAY 1 VIEW on DOS: 04/28/25, XY CHEST PORTABLE on DOS: 01/25/25 FINDINGS: Lines and Tubes: None Lungs: No focal consolidation. Pleura: No effusion. No pneumothorax. Cardiomediastinal contours: Unremarkable Bones: No acute osseous abnormality. IMPRESSION: 1. No acute cardiopulmonary disease. 2. No significant change from 04/29/2025. ATED BY: HAYLEY CHRISTIANSON Jr., DO DICTATED DATE/TIME: 06/14/251917 SIGNED BY: HAYLEY CHRISTIANSON Jr., SIGNED DATE/TIME: 06/14/251917 CC: Time of 1ST Reevaluation: 19:00 Reevaluation 1ST: Unchanged Time of 2ND Reevaluation: 22:33 (The case was discussed with the [facility] team (HPI, physical exam, labs and diagnostic tests that were available at the time of disposition, ED course, treatment plan) on the phone. They evaluate the patient on the camera. They recommend giving a total of 2 g of Keppra and not change her baseline medications at home. And [facility] but if the patient gets any recurrent seizures here in the ED to admission to the hospital and the neurology [facility] is willing to be reconsulted and follow up as needed while the patient is upstairs admitted. ) Patient Education/Counseling: Diagnosis, Treatment Family Education/Counseling: Diagnosis, Treatment Comments MDM: patient presented with the above HPI.---seizure---workup was initiated. patient was found with the above mentioned diagnosis. the following medications were ordered: please refer to order lists of meds and tests obtained by myself Dr. Skelton. Patient ED course and VS have been stabilized. Patient has been reassessed in the ED and remained in a stable condition. Pertinent incidental findings were discussed with the patient and/or family. Patient has been observed in the ED adequate length of time to insure improvement/stability. Escalation of care considered: Consideration of escalation to observation or admission [facility] were consulted. Neurology recommended to give a total of 2 g of Keppra today. They also recommended discharging the patient home without changes in medications. Patient has been observed for many hours and has returned back to her baseline. She is ambulatory in the ED. Blood pressure is stable. at bedside. Patient wants to be discharged home. Patient's earlier told me that she has been compliant with the medication it took her morning dose however the neurologist told me that the patient has not been taking her seizure medications in the last two days. Patient states that she had three small glasses of wine. Her blood alcohol level here was greater than 300. Patient was upset that part of her diagnosis and findings today was alcohol abuse Patient was DISCHARGED home in a stable condition. All the reports of any imaging studies that were ordered by myself were reviewed by myself. Departure 1 Departure Time of Disposition: 21:02 Impression: Primary Impression: Recurrent seizures Additional Impressions: Alcohol abuse Chest pain Disposition: ADMITTED INPATIENT Admit to: Tele Condition: Guarded Additional Instructions: Additional instructions: Please read all instructions provided in this packet carefully. You MUST follow-up with your primary care/family doctor in 1 to 2 days. If you are unable to see your primary care/family doctor, please return to our emergency room for re-assessment and re-evaluation in 1 to 2 days. Return to the emergency room here in our facility or to the nearest ER [facility] if your symptoms change or worsen. CONSULTATIONS: you MUST Follow-up for consultation as soon as possible with: -neurology in 1-2 days. Please call for appointment. You MUST call the consultants office yourself to make an appointment. You may need to arrange that through your insurance and/or your primary/family doctor. If you are unable to see the data power consultant in 1 to 2 days, you must return to our emergency room (or any other ER of your choice) for re-assessment and re-ramon luation. Adequate fluid hydration. Continue taking IV blood pressure medications. Seek help regarding alcohol abuse. Although you have been discharged from the Emergency Department, this does not mean that you have a "clean bill of health". No definitive diagnosis for your symptoms has been made today. It is possible that you are in the process of developing a serious illness. This is why you must return to the ED without fail if any new or worsening symptoms develop. Discharged With: Self Critical Care Note Critical Care Time?: Yes (45 min-critical care time only) Stability Stability form required: No Heart Score Heart Score: Heart Score Response (Comments) Value History Slightly Suspicious 0 EKG Normal 0 Age <45 0 Risk Factors 1 or 2 risk factors 1 Troponin Normal limit 0 Total 1 I personally scribed for COURTNEY SKELTON DO ([email or web address]) on 06/14/25 at 18:50. Electronically submitted by Tashi Mcwilliams ([email or web address]). I personally scribed for COURTNEY SKELTON DO ([email or web address]) on 06/14/25 at 20:35. Electronically submitted by Tashi Mcwilliams ([email or web address]). I personally scribed for COURTNEY SKELTON DO ([email or web address]) on 06/14/25 at 20:36. Electronically submitted by Tashi Mcwilliams ([email or web address]). I personally scribed for COURTNEY SKELTON DO ([email or web address]) on 06/14/25 at 21:15. Electronically submitted by Tashi Mcwilliams ([email or web address]). COURTNEY SKELTON DO Jun 14, 2025 18:50
[2025-06-14] MEDS: levETIRAcetam 1000 mg/100ml 100 ML IV ONE ×2 (19:11→22:45)
--- NOTE | 2025-06-14 19:20 | DVH ---
CHEST RADIOGRAPH Indication: cp Technique: Single frontal view of the chest was obtained Comparison: XY CHEST XRAY 1 VIEW on DOS: 04/29/25, XY CHEST XRAY 1 VIEW on DOS: 04/28/25, XY CHEST PORT ABLE on DOS: 01/25/25 FINDINGS: Lines and Tubes: None Lungs: No focal consolidation. Pleura: No effusion. No pneumothorax. Cardiomediastinal contours: Unremarkable Bones: No acute osseous abnormality. IMPRESSION: 1. No acute cardiopulmonary disease. 2. No significant change from 04/29/2025.
[2025-06-14 19:23] VITALS: PULSE 98; RESP 26; TEMP 98.1; O2SAT 95
[2025-06-14 19:34] LABS: Hematocrit 32.6 % (36.0-46.0); Hemoglobin 9.6 g/dL (12.2-16.2); Mean Corpuscular Hemoglobin 22.1 pg (28.0-32.0); Mean Corpuscular Volume 75.4 fL (80.0-100.0); Nucleated Red Blood Cells % 0.1 %
[2025-06-14 19:49] LABS: Alkaline Phosphatase 87 U/L (46-116); Anion Gap 15 (5-15); BUN/Creatinine Ratio 10.0 (10.0-20.0); Calcium 9.0 mg/dL (8.7-10.4); Carbon Dioxide 23 mmol/L (20-31); Chloride 102 mmol/L (98-107); Magnesium 2.2 mg/dL (1.6-2.6); Potassium 3.9 mmol/L (3.5-5.1); Sodium 140 mmol/L (136-145)
[2025-06-14 19:50] LABS: Alanine Aminotransferase 56 U/L (7-40); Albumin 4.9 g/dL (3.2-4.8); Bilirubin, Total 0.4 mg/dL (0.2-1.0); Blood Urea Nitrogen 8 mg/dL (9-23); Glucose 114 mg/dL (74-106); Total Protein 8.3 g/dL (5.7-8.2)
[2025-06-14 19:50] LABS: Amphetamine Screen, Urine Neg (NEGATIVE)
[2025-06-14 19:52] LABS: Barbiturate Scree,Urine Neg (NEGATIVE); Benzodiazephine Screen, Urine Neg (NEGATIVE); Cannabinoid Screen, Urine Pos (NEGATIVE); Cocaine Screen, Urine Neg (NEGATIVE); Opiate Scree,Urine Neg (NEGATIVE); Phencyclidine Screen, Urine Neg (NEGATIVE)
[2025-06-14 19:53] LABS: Lactic Acid w/Reflex 2.8 mmol/L (0.4-2.0)
[2025-06-14] MEDS: SODIUM CHLORIDE 0.9% 2,000 ML IV ONE (20:00)
[2025-06-14] MEDS: LORazepam 2MG/ML-1ML VIAL ONE (20:51)
[2025-06-14] MEDS: LORazepam 2MG/ML-1ML VIAL IV ONE (21:00)
--- NOTE | 2025-06-14 22:33 | DVHINCON2 ---
Neuro Consultation Date of Consultation Date: 06/15/25 History of Present Illness History of Present Illness: Roundup Neuro Note # Demographics Consult Type: General Neurology Patient Location: Emergency Room First Name: DEEP Last Name: DELBERT Date of : 1985 Age: 40 Gender: Female Facility: [facility] Time of Initial Page (): 06/14/2025 22:04 First Contact with Site (): 06/14/2025 22:05 # HPI History: 40yof with seizures (on Keppra 1g BID) who p/w breakthrough seizure. She was recently seen by her neurologist 3 weeks ago and says her seizures are usually triggered by stress or decreased food intake. She says she has been m issing seizure medication doses, she says she did not take any today or last night. # Exam Mental Status: - sleepy Language: - normal speech - no aphasia Cranial Nerves: - normal - extra ocular movements intact Motor: - normal strength Sensory: - normal sensation # Assessment Impression: Breakthrough seizures commonly likely due to medication non-compliance. Would monitor until pt back to baseline, if return to baseline can follow with outpatient neuro. If any further seizure or concern for not returning to baseline, would admit for observation. # Plan Labs: - CBC - comprehensive metabolic panel - thiamine - ua - urine drug screen Basic infectious and metabolic workup Magnesium Medication: Load Keppra 2g, Continue keppra 1g BID Other: - If patient has any neurological deterioration please call me back immediately - seizure precautions - Please check routine labs and studies to rule out infection or metabolic abnormality (CBC, BMP, LFTs, magnesium, UA, B-HCG, CXR) and treat as appropriate - Give 2 grams IV magnesium sulfate for serum magnesium <= 1.8, optimize other electrolytes - Avoid epileptogenic medications such as wellbutrin, cefepime, ultram, quinolones, and imipenum - Seizure precautions, including appropriate state law prohibiting driving, angela iding heights, tubs/swimming pools and standing over open flames # Logistics Attestation of consult completion: The patient is located at: [facility]. Facility staff participated in the visit. I performed this telemedicine visit from my offsite office utilizing interactive 2 way audio and visual telecommunication technology at the request of the onsite emergency room provider. # Demographics First Name: DEEP Last Name: DELBERT Facility: [facility] Review of Systems Review of Systems: Review of Systems: 12 point review of systems is negative unless stated in HPI. Social History Social History: Social History: Denies alcohol, tobacco, and/or ellicit drug usage. Work - Living situation - Use of ambulatory devices - Family History Patient History: Cancer FH: arthritis G8 MOTHER Family history: Diabetes mellitus G8 FATHER Family history: Hypertension G8 MOTHER G8 FATHER Hypertension Allergies and Medications Allergies: Coded Allergies: Ibuprofen (Verified Allergy, Mild, STOMACH IRRITATION, 08/07/13) Cephalexin (Verified Allergy, Unknown, 04/29/25) Metoclopramide (Verified Allergy, Unknown, 02/16/14) Home Meds: Active Scripts Acetaminophen (Tylenol Extra Strength Fo) 500 Mg Tab, 650 MG PO QID, #30 TAB Prov:ETHAN MELVIN 04/28/25 Hydrocodone-Acetaminophen (Hydrocodone Bitartrate/AC 5-325 mg) 1 Tab Tab, 1 TAB PO QIDPRN, #20 TAB Prov:DICK BARNES MD 05/26/24 Levofloxacin Hemihydrate (LEVAQUIN 500 MG) 500 Mg Tab, 500 MG PO DAILY for 7 Days, #7 TAB Prov:DICK BARNES MD 05/26/24 Cyclobenzaprine Hcl (Cyclobenzaprine Hcl) 5 Mg Tab, 1 TAB PO QPM PRN, #30 TAB Prov:MARY CABRERA 11/26/23 Azithromycin (Zithromax) 1 Gm Pow, 1 PACK PO ONCE, #1 PACK Prov:JULIETTE ADAMES MD 06/27/23 Tamsulosin Hcl (Flomax) 0.4 Mg Cap, 1 CAP PO DAILY for 6 Days, #6 CAP 0 Refills Prov:GIL HOPKINS 03/24/23 Tramadol Hcl (Tramadol Hcl) 50 Mg Tab, 50 MG PO QIDP, #10 TAB 0 Refills Prov:GIL HOPKINS 03/24/23 Cyclobenzaprine Hcl (Cyclobenzaprine Hcl) 5 Mg Tab, 1 TAB PO QPM PRN, #14 TAB 0 Refills Prov:GIL HOPKINS 03/24/23 Ferrous Sulfate (FERROUS SULFATE) 325 Mg Tb, 325 MG PO BID for 30 Days, #60 TAB Prov:DANA MARY INCOMING FREIGHT CLERK 02/08/23 Ondansetron Odt 4MG Tab (ZOFRAN PO) 4 Mg Tb, 1 TAB PO Q8HR, #20 TAB ODT TAB-DISSOLVE IN MOUTH, THEN SWALLOW as needed for nausea/vomiting Prov:AUGIE MARYA Q INCOMING FREIGHT CLERK 02/08/23 Ibuprofen Micronized (MOTRIN TABLET) 600 Mg Tb, 1 TAB PO TID PRN, #20 TAB as needed for pain Prov:AUGIE MARYA Q INCOMING FREIGHT CLERK 02/08/23 Ondansetron (Zofran) 4 Mg Tab, 1 TAB PO Q6HR, #20 TAB Prov:JULIETTE ADAMES MD 10/25/22 Ferrous Sulfate (Iron) 325 Mg Tab, 325 MG PO BID for 30 Days, #60 TAB 3 Refills Prov:PK CHAPMAN MD 02/07/22 Sucralfate (Carafate) 1 Gm/10 Ml Yesenia, 1 GM PO QID for 30 Days, #120 ML Prov:PK CHAPMAN MD 02/07/22 Pantoprazole Sodium Sesquihydr (Pantoprazole Sodium) 40 Mg Tab, 40 MG PO BID for 30 Days, #60 TAB 1 Refill Prov:PK CHAPMAN MD 02/07/22 Reported Medications Buspirone Hcl (Buspirone Hcl) 7.5 Mg Tab, 1 TAB PO BID 04/29/25 Amlodipine Besylate (Amlodipine Besylate) 5 Mg Tab, 1 TAB PO BID 04/29/25 General Examination Last Vital sign Vital Signs Date Time Temp Pulse Resp B/P (MAP) Pulse Ox O2 Delivery O2 Flow Rate FiO2 06/14/25 20:36 96 06/14/25 19:23 26 95 Room Air* 0 21 06/14/25 19:23 98.1 139/84 (102) 98.1 General Exam: General Examination: General: No apparent distress, appears comfortable. Cooperative HEENT: Normocephalic, atraumatic. Supple neck. No oropharynx lesion or exudate noted. Extremities: No noted edema or cyanosis Skin: No noted rashes or jaundice. Neuro Exam: Neurological Examination: Mental Status: Alert and oriented to person, place, and time. Speech is fluent. No dysarthria or aphasia noted. Cranial Nerves: Pupils equally round and reactive to light. Fundoscopic examination showed sharp optic discs. Visual arzate intact. No dysconjugate gaze. Extraocular movements were intact. No ptosis on primary gaze or fatiguable ptosis was noted. Sensation intact in V1-V3 bilaterally. No facial asymmetry with symmetrical brow raise, smile, and puffing out cheeks. Hearing intact to finger rub bilaterally. Tongue midline with symmetrical palate elevation. No tongue atrophy or fasciculations noted. Intact shoulder shrug. Motor examination: Normal bulk and tone in the bilateral upper and lower extremities. No abnormal movements appreciated. Upper Extremities (Right/Left) Infraspinatus 5/5 Deltoid 5/5 Biceps 5/5 Triceps 5/5 Wrist Extension 5/5 Wrist Flexion 5/5 Finger Extension 5/5 Finger Flexion 5/5 Interosseous 5/5 ABP 5/5 Lower Extremities (Right/Left) Iliopsoas 5/5 Quadriceps 5/5 Hamstrings 5/5 Tibialis anterior 5/5 Gastrocnemius 5/5 Toe Extension 5/5 Reflexes: Jaw Jerk absent Pectoralis absent/absent Biceps 2/2 Triceps 2/2 Brachioradialis 2/2 Patellar 2/2 Ankle 2/2 Babinski's Down/Down Sensory: Upper Extremity - Intact to light touch, pinprick, vibration, and joint position. Lower Extremity - Intact to light touch, pinprick, vibration, and joint position. Coordination: Intact finger to nose and [id number] bilaterally. No dysmetria noted. Negative Romberg's. Gait: Normal stride and stance. Able to perform heel, toe, and heel-to-toe walking without difficulty. Able to squat and get up from a chair unassisted without difficulty. Labs: Laboratory Tests Test 06/14/25 18:48 06/14/25 18:53 06/14/25 19:51 06/14/25 21:39 Range/Units Urine Opiates Screen Neg NEGATIVE Urine Fentanyl Screen Neg NEGATIVE Urine Barbiturates Screen Neg NEGATIVE Urine Phencyclidine Screen Neg NEGATIVE Urine Amphetamines Screen Neg NEGATIVE Urine Benzodiazepines Screen Neg NEGATIVE Urine Cocaine Screen Neg NEGATIVE Urine Cannabinoids Screen Pos NEGATIVE White Blood Count 10.4 4.4-10.8 10^3/uL Red Blood Count 4.33 4.0-5.20 10^6/uL Hemoglobin 9.6 L 12.2-16.2 g/dL Hematocrit 32.6 L 36.0-46.0 % Mean Corpuscular Volume 75.4 L 80.0-100.0 fL Mean Corpuscular Hemoglobin 22.1 L 28.0-32.0 pg Mean Corpuscular Hemoglobin Concent 29.4 L 32.0-36.0 g/dL Red Cell Distribution Width 24.7 H 11.8-14.3 % Platelet Count 392 140-450 10^3/uL Mean Platelet Volume 6.7 L 6.9-10.8 fL Neutrophils (%) (Auto) 71.8 37.0-80.0 % Lymphocytes (%) (Auto) 20.2 10.0-50.0 % Monocytes (%) (Auto) 5.6 0.0-12.0 % Eosinophils (%) (Auto) 1.8 0.0-7.0 % Basophils (%) (Auto) 0.6 0.0-2.0 % Neutrophils # (Auto) 7.5 1.6-8.6 10 ^3/uL Lymphocytes # (Auto) 2.1 0.4-5.4 10 ^3/uL Monocytes # (Auto) 0.6 0-1.3 10 ^3/uL Eosinophils # (Auto) 0.2 0-0.8 10 ^3/uL Basophils # (Auto) 0.1 0-0.2 10 ^3/uL Nucleated Red Blood Cells 0.1 % Sodium Level 140 136-145 mmol/L Potassium Level 3.9 3.5-5.1 mmol/L Chloride Level 102 98-107 mmol/L Carbon Dioxide Level 23 20-31 mmol/L Anion Gap 15 5-15 Blood Urea Nitrogen 8 L 9-23 mg/dL Creatinine 0.80 0.550-1.02 mg/dL Glomerular Filtration Rate Calc 96 >90 mL/min BUN/Creatinine Ratio 10.0 10.0-20.0 Serum Glucose 114 H 74-106 mg/dL Lactic Acid Level 2.8 *H 3.1 *H 0.4-2.0 mmol/L Calcium Level 9.0 8.7-10.4 mg/dL Magnesium Level 2.2 1.6-2.6 mg/dL Total Bilirubin 0.4 0.2-1.0 mg/dL Aspartate Amino Transferase (AST) 81 H 13-40 U/L Alanine Aminotransferase (ALT) 56 H 7-40 U/L Alkaline Phosphatase 87 46-116 U/L Troponin I High Sensitivity < 3 L < 3 L < 3 L </=34 ng/L Total Protein 8.3 H 5.7-8.2 g/dL Albumin 4.9 H 3.2-4.8 g/dL Levetiracetam Level Pending Plasma/Serum Blood Alcohol 306.6 H <10 mg/dL Assessment/Plan Assessment and Plan:Deep James is a 40 year old female who presents with Plan discussed with: Patient OLY GARCIA MD Jun 14, 2025 22:33
--- NOTE | 2025-06-15 00:27 | ECG ---
[facility] Test Date: 2025-06-14 Test Time: 20:11:12 Pat Name: DEEP MANDUJANO Department: [facility] ED Patient ID: [facility]-[id number] Room: Gender: F Clinical Dermatologist: CINDA : 1985 Requested By: COURTNEY SKELTON Order Number: [id number] Reading MD: Silas Bejarano Measurements Intervals [place] Rate: 96 P: 54 UT: 133 QRS: 45 QRSD: 87 T: 22 QT: 373 QTc: 472 Interpretive Statements Sinus rhythm Borderline T abnormalities, anterior leads Electronically Signed On 06-19-2025 20:27:52 PDT by Silas Bejarano Please click the below link to view image of tracing.
[2025-06-15 02:05] VITALS: BP 140/87; PULSE 98; RESP 17; O2SAT 95
== END 2025-06-15 02:36 | disposition home or self-care (01) ==
LOC: ER 18:13 → EDBD 18:13 → ER 06-15 02:36
CPT/HCPCS: 36415 ×2; 71045 ×2; 80053 ×2; 80307 ×2; 80320 ×2; 82542 ×2; 82947 ×2; 83605 ×2; 83735 ×2; 84484 ×2; 85025 ×2; 93005 ×2; 96361 ×2; 96365 ×2; 96367; 96368 ×2; 96375 ×2; 96376 ×2; 99291 ×2; J0696; J1953; J2060; J7030